=== PATIENT | female | born 1970 | race African-American/Black ===

== ENCOUNTER 2019-03-28 16:33 | Inpatient (IN) ==
[2019-03-28] MEDS ORDERED: ASPIRIN PO ONE (16:51)
[2019-03-28 17:46] LABS: BASO# 0.27 X1000 (0.0-0.2); EOS# 0.03 X1000 (0.0-0.7); EOS% 0.1 % (0.0-10.0); HEMATOCRIT 32.4 % (37.0-47.0); HEMOGLOBIN 11.6 g/dL (12.0-16.0); IMM GRAN# 2.16 X1000 (0.0-0.04); IMM GRAN% 8.2 % (0.0-0.5); LYMPH% 6.8 % (20.5-51.1); MCHC 35.8 g/dL (33-37); MCV 100.6 FL (81-99); MONO# 2.95 X1000 (0.11-0.59); MONO% 11.1 % (1.7-9.3); MPV 11.2 FL (7.4-10.4); NEUT# 19.25 X1000 (1.4-6.5); NEUT% 72.8 % (42.2-75.2); PLT 184 X1000 (130-400); RBC 3.22 XMIL (4.2-5.4); WBC 26.46 X1000 (4.8-10.8)
[2019-03-28 17:55] LABS: INR 1.19; PROTIME 15.7 Seconds (11.0-16.0)
[2019-03-28 17:56] LABS: PTT 25.5 Seconds (22.3-41.8)
--- NOTE | 2019-03-28 18:01 | Diag Imaging Result Doc PS360 ---
CHEST-2 VIEWS - 03/28/2019 INDICATION: tachycardia/dizzy COMPARISON: 12/02/2018 FINDINGS: The lungs are normally expanded and clear. Heart size and mediastinal contours are normal. No pneumothorax or pleural effusion. IMPRESSION: Negative exam. Electronically signed by Zack Winters 03/28/2019 5:58 PM
[2019-03-28] MEDS ORDERED: ROCEPHIN 1 GM in NS 50 ML IV ONE (18:11)
[2019-03-28] MEDS ORDERED: M.V.I.-12 10 ML, FOLIC ACID 1 MG, MAGNESIUM SULFATE 1 GM, THIAMINE 100 MG in NS 1,000 ML IV ONE (18:11)
[2019-03-28 18:28] LABS: BANDS 4 % (0-1); LYMPHS 7 % (21-51); MONO 11 % (1-9); SEGS 78 % (42-75)
--- NOTE | 2019-03-28 18:52 | PROVIDER DOCUMENTATION ---
This chart was entered by Yong Diaz Scribe, acting as scribe for Orville Moise MD. HPI-General Adult - General Source: patient, family - History of Present Illness -Gen Adult Nature of Presenting Problems: Pt is a 48 yof who presents to the ED with a CC of weakness. Pt states she has felt dizzy and weak for four days. Pt reports she has fell three times lately. Pt reports she had a chest cold three weeks ago, and states she hasn't felt well since. Pt's daughter states she fell down a flight of steps approximately one month ago. Pt daughter states she has had symptoms since her fall. Pt's daughter states the pt has been slurring her speech lately. Pt's daughter reports the pt has not been eating well lately, but she has increased amount of bowel movements. Pt's daughter states the pt has sores on her buttocks and states she has had blood in her stool recently. Pt's daughter states she thinks the pt is dehydrated and states she has been sleeping an excess amount lately. 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 Location of Pain/Injury: reports: generalized (Weakness) Quality of Pain: reports: other (Weakness) Severity: reports: mild Onset/Duration: reports: 4 days ago Timing: reports: still present Associated Symptoms: reports: sensory/motor loss, weakness, trouble walking, other (See HPI) Similar Symptoms Previously?: No Recently seen or treated by another doctor?: No <Orville Moise - Last Filed: 03/28/19 18:52> <Matt Johnson - Last Filed: 03/28/19 20:27> - General Chief Complaint: General Adult Stated Complaint: DIZZY / HURTS ALL OVER Time Seen by Provider: 03/28/19 17:01 Allergies/Adverse Reactions: Patient Allergies Allergy/AdvReac Type Severity Reaction Status Date / Time No Known Allergies Allergy Verified 08/27/13 02:38 Home Medications: Home Medication List Medication Instructions Recorded Confirmed Last Taken Type NK [No Home Medications] 03/28/19 03/28/19 Unknown History Review of Systems - Adult - REVIEW OF SYSTEMS - ADULT Constitutional: reports: see HPI Eyes: reports: no symptoms reported Ears, Nose, Mouth & Throat: reports: no symptoms reported Cardiovascular: reports: no symptoms reported Respiratory: reports: see HPI Gastrointestinal: reports: see HPI, rectal bleeding Genitourinary: reports: no symptoms reported Musculoskeletal: reports: see HPI, muscle weakness Integumentary: reports: no symptoms reported Neurological: reports: see HPI, ataxia, dizziness/vertigo, loss of balance, slurred speech Psychiatric: reports: no symptoms reported Endocrine: reports: no symptoms reported Hematologic/Lymphatic: reports: no symptoms reported Allergic/Immunologic: reports: no symptoms reported All Other Systems: Reviewed and Negative <Orville Moise - Last Filed: 03/28/19 18:52> Past History - Adult - PAST MEDICAL HISTORY-ADULT Review of Records: reports: Old Records Reviewed, Nursing Assessment Review, Medications Reviewed, Social history reviewed & non-contributory. Major Childhood Illnesses: reports: denies history Cardiovascular: reports: denies history Respiratory: reports: denies history Gastrointestinal: reports: other (doesn't eat well since her Jcak-en y surgery) Obstetrical/Gynecological: reports: denies history Genitourinary: reports: denies history Musculoskeletal: reports: denies history Neurological: reports: denies history Psychiatric: reports: anxiety Endocrine/Immune: reports: denies history Other Conditions: reports: denies history - PRIOR SURGERIES/PROCEDURES Surgical/Procedure History: reports: gastric bypass - IMMUNIZATION STATUS Childhood Immunizations: See Nurse Assessment Flu Vaccine: See Nurse Assessment - FAMILY HISTORY Family History: reviewed, not pertinent - SOCIAL HISTORY Smoking: cigarettes, greater than 1 pack/day Substance Use: alcohol, marijuana Alcohol Use Frequency: every day <Orville Moise - Last Filed: 03/28/19 18:52> Physical Exam-General - PHYSICAL EXAM-ADULT Initial Vital Signs Reviewed: Yes - CONSTITUTIONAL General Appearance: alert, mild distress - EYES Eyes: PERRL/EOMI, pink conjunctivae - NECK Neck: non-tender, full range of motion - RESPIRATORY Respiratory: chest non-tender, lungs clear, normal breath sounds, no pleuratic chest pain, no respiratory distress - CARDIOVASCULAR Cardiovascular: normal peripheral pulses, regular rate, rhythm, no edema, no gallop, no JVD, no murmur - GASTROINTESTINAL (ABDOMEN) Abdominal Exam: non tender, soft - MUSCULOSKELETAL Extremity: normal range of motion, non-tender - SKIN Integumentary: normal color, warm/dry - NEUROLOGIC Neurologic: relish maker II-XII nml as tested, grossly normal - PSYCHIATRIC Psych/Mental Status: normal mood/affect, normal thought content, normal thought process, oriented x 3 <Orville Moise - Last Filed: 03/28/19 18:52> Progress - PLAN OF CARE/RESULTS Progress/Plan/Lab Results: Vital Signs - 8 hr 03/28/19 16:36 Temperature 98 F Pulse Rate 118 H Respiratory Rate 18 Blood Pressure 116/66 O2 Sat by Pulse Oximetry 97 Orders Category Date Time Status Cardiac Monitoring DIRECTED Care 03/28/19 16:51 Active Nursing- Obtain EKG ONCE Care 03/28/19 16:48 Active Oxygen Therapy- ED Nursing DIRECTED Care 03/28/19 16:51 Active Saline Loc NOW Care 03/28/19 16:51 Active CHEST-2 VIEWS [RAD] Stat Exams 03/28/19 16:51 Ordered ALCOHOL BLOOD Stat Lab 03/28/19 17:11 Ordered AMYLASE [CHEM] Stat Lab 03/28/19 16:51 Ordered CBC WITH DIFF [HEME] Stat Lab 03/28/19 16:51 Ordered CBC WITH DIFF [HEME] Stat Lab 03/28/19 16:59 Ordered CBC WITH ELECTRONIC DIFF [HEME] Stat Lab 03/28/19 17:11 Ordered CK PROFILE [SP CHEM] Stat Lab 03/28/19 17:11 Ordered CMP [COMPREHENSIVE METABOLIC PANEL] [CHEM] Stat Lab 03/28/19 17:11 Ordered COMPREHENSIVE METABOLIC PANEL [CHEM] Stat Lab 03/28/19 17:11 Ordered LIPASE [CHEM] Stat Lab 03/28/19 17:11 Ordered PRO B-NATRIURETIC PEPTIDE Stat Lab 03/28/19 17:11 Ordered PROTIME WITH INR [COAG] Stat Lab 03/28/19 17:11 Ordered PTT [COAG] Stat Lab 03/28/19 17:11 Ordered TROPONIN T Stat Lab 03/28/19 17:[address] W/POSS RFLX CULT [URINALYSIS] Stat Lab 03/28/19 16:51 Uncollected Aspirin Med 03/28/19 16:51 Discontinued 325 mg PO NOW ONE CP/SOB/Palp >45 yrs of Age Stat Oth 03/28/19 16:51 Ordered EKG [EKG] Stat Ther 03/28/19 16:48 Ordered Result Diagrams: 03/28/19 17:16 - EKG 1 Time of EKG reading by physician:: 16:53 EKG Read and Signed by:: Orville Moise EKG Interpretation (*Must complete 3 of following elements*): Abnormal (Possible anterior infarct, age undetermined) Rate: 112 Rhythm: Sinus tachycardia [place]: normal QRS: normal TN Interval: normal ST Wave: normal - XRAY 1 XRAY: Bilateral XRAY Study: Chest Impression: See EMR Report (CHEST-2 VIEWS - 03/28/2019 INDICATION: tac hycardia/dizzy COMPARISON: 12/02/2018 FINDINGS: The lungs are normally expanded and clear. Heart size and mediastinal contours are normal. No pneumothorax or pleural effusion. IMPRESSION: Negative exam. Electronically signed by Zack Winters 03/28/2019 5:58 PM 03/28/191757 Interpreting Physician: Zack Winters MD Dictated Date/Time: 03/28/191757 cc: Orville Moise MD; None,PCP) - CONSULTS/PCP/HOSPITALIST Notification #1 *Consult/PCP/Hospitalist*: Dr Ma Time Discussed: 18:14 Consult Disposition: Will see in ED, Admit - CHANGE OF SHIFT REPORT (ED Provider) 1 Report Given and Care Transferred to:: Dr Johnson Time of Transfer: 18:52 Items Pending: Labs, CT/MRI Results <Orville Moise - Last Filed: 03/28/19 18:52> - PLAN OF CARE/RESULTS Progress/Plan/Lab Results: Vital Signs - 8 hr 03/28/19 16:36 Temperature 98 F Pulse Rate 118 H Respiratory Rate 18 Blood Pressure 116/66 O2 Sat by Pulse Oximetry 97 Laboratory Results - last 24 hr 03/28/19 03/28/19 03/28/19 17:10 17:10 17:10 WBC Cancelled RBC Cancelled Hgb Cancelled Hct Cancelled MCV Cancelled MCH Cancelled MCHC Cancelled RDW Std Deviation Cancelled Plt Count Cancelled MPV Cancelled Immature Gran % (Auto) Cancelled Neut % (Auto) Cancelled Lymph % (Auto) Cancelled Morton % (Auto) Cancelled Eos % (Auto) Cancelled Baso % (Auto) Cancelled Immature Gran # (Auto) Cancelled Neut # (Auto) Cancelled Lymph # (Auto) Cancelled Morton # (Auto) Cancelled Eos # (Auto) Cancelled Baso # (Auto) Cancelled Corrected WBC (Man) Cancelled Segmented Neutrophils Band Neutrophils Lymphocytes Monocytes PT INR PTT (Actin FS) Sodium Potassium Chloride Carbon Dioxide Anion Gap BUN Creatinine Estimated GFR/1.73 m2 BUN/Creatinine Ratio Glucose Calculated Osmolality Calcium Total Bilirubin AST ALT Alkaline Phosphatase Creatine Kinase Troponin T Lfi-D-Memzgohkuyk Pept Total Protein Albumin Globulin Albumin/Globulin Ratio Amylase 345 H Lipase Plasma Lactate Plasma/Serum Ethyl Alc 03/28/19 03/28/19 03/28/19 17:10 17:10 17:10 WBC RBC Hgb Hct MCV MCH MCHC RDW Std Deviation Plt Count MPV Immature Gran % (Auto) Neut % (Auto) Lymph % (Auto) Morton % (Auto) Eos % (Auto) Baso % (Auto) Immature Gran # (Auto) Neut # (Auto) Lymph # (Auto) Morton # (Auto) Eos # (Auto) Baso # (Auto) Corrected WBC (Man) Segmented Neutrophils Band Neutrophils Lymphocytes Monocytes PT 15.7 INR 1.19 PTT (Actin FS) 25.5 Sodium 132 L Potassium 2.8 L Chloride 94 L Carbon Dioxide 18 L Anion Gap 20 BUN 83 H Creatinine 3.3 H Estimated GFR/1.73 m2 15 BUN/Creatinine Ratio 25 Glucose 120 H Calculated Osmolality 291 Calcium 7.8 L Total Bilirubin 4.00 H AST 42 H ALT 31 Alkaline Phosphatase 117 H Creatine Kinase 60 Troponin T Txm-T-Majxnuqoeqr Pept 528 H Total Protein 5.9 L Albumin 2.6 L Globulin 3.0 Albumin/Globulin Ratio 1.0 Amylase Lipase 575 H Plasma Lactate Plasma/Serum Ethyl Alc 03/28/19 03/28/19 03/28/19 17:10 17:16 18:15 WBC 26.46 H RBC 3.22 L Hgb 11.6 L Hct 32.4 L MCV 100.6 H MCH 36.0 H MCHC 35.8 RDW Std Deviation 15.0 H Plt Count 184 MPV 11.2 H Immature Gran % (Auto) 8.2 H Neut % (Auto) 72.8 Lymph % (Auto) 6.8 L Morton % (Auto) 11.1 H Eos % (Auto) 0.1 Baso % (Auto) 1.0 H Immature Gran # (Auto) 2.16 H Neut # (Auto) 19.25 H Lymph # (Auto) 1.80 Morton # (Auto) 2.95 H Eos # (Auto) 0.03 Baso # (Auto) 0.27 H Corrected WBC (Man) Segmented Neutrophils 78 H Band Neutrophils 4 H Lymphocytes 7 L Monocytes 11 H PT INR PTT (Actin FS) Sodium Potassium Chloride Carbon Dioxide Anion Gap BUN Creatinine Estimated GFR/1.73 m2 BUN/Creatinine Ratio Glucose Calculated Osmolality Calcium Total Bilirubin AST ALT Alkaline Phosphatase Creatine Kinase Troponin T 0.029 Nbt-Q-Kriartbcoyw Pept Total Protein Albumin Globulin Albumin/Globulin Ratio Amylase Lipase Plasma Lactate 1.3 Plasma/Serum Ethyl Alc Orders Category Date Time Status Cardiac Monitoring DIRECTED Care 03/28/19 16:51 Active Cardiac Monitoring DIRECTED Care 03/28/19 19:20 Active Regan Cath Insertion ORDERED Care 03/28/19 19:18 Active Intake and Output-Strict ORDERED Care 03/28/19 19:18 Active Notify MD of + Sepsis Screen NOW Care 03/28/19 19:20 Active Notify MD/PA/FAST FOOD SALES ASSISTANT for exam NOW Care 03/28/19 19:18 Active Nursing- Obtain EKG ONCE Care 03/28/19 16:48 Active Oxygen Therapy- ED Nursing DIRECTED Care 03/28/19 16:51 Active Repeat Vital Signs .Blood Pressure Care 03/28/19 19:18 Active Repeat Vital Signs .Heart Rate Care 03/28/19 19:18 Active Repeat Vital Signs .Oxygen Saturation Care 03/28/19 19:18 Active Repeat Vital Signs .Respiratory Rate Care 03/28/19 19:18 Active Repeat Vital Signs .Temp Care 03/28/19 19:18 Active Saline Loc NOW Care 03/28/19 16:51 Active CHEST-2 VIEWS [RAD] Stat Exams 03/28/19 16:[address] ABDOMEN/PELVIS W/O CONTRAST [CT] Stat Exams 03/28/19 19:[address] HEAD W/O CONTRAST [CT] Stat Exams 03/28/19 18:12 Completed ALCOHOL BLOOD Stat Lab 03/28/19 17:10 Completed AMYLASE [CHEM] Stat Lab 03/28/19 17:10 Completed BLOOD CULTURE [BLDCUL] Stat Lab 03/28/19 18:11 Ordered CBC WITH DIFF [HEME] Stat Lab 03/28/19 17:16 Completed CK PROFILE [SP CHEM] Stat Lab 03/28/19 17:10 Completed CMP [COMPREHENSIVE METABOLIC PANEL] [CHEM] Stat Lab 03/28/19 17:10 Completed LACTATE, PLASMA [CHEM] Lab 03/28/19 19:30 Uncollected LACTATE, PLASMA [CHEM] Lab 03/28/19 22:30 Uncollected LACTATE, PLASMA [CHEM] Lab 03/29/19 01:30 Uncollected LACTATE, PLASMA [CHEM] Stat Lab 03/28/19 18:15 Completed LACTATE, PLASMA [CHEM] Timed Lab 03/28/19 19:18 Uncollected LIPASE [CHEM] Stat Lab 03/28/19 17:10 Completed PRO B-NATRIURETIC PEPTIDE Stat Lab 03/28/19 17:10 Completed PROTIME WITH INR [COAG] Stat Lab 03/28/19 17:10 Completed PTT [COAG] Stat Lab 03/28/19 17:10 Completed TROPONIN T Stat Lab 03/28/19 17:[address] W/POSS RFLX CULT [URINALYSIS] Stat Lab 03/28/19 16:51 Uncollected 0.9% Sodium Chloride Inj [Ns] 1,000 ml Med 03/28/19 19:18 Discontinued IV As Directed mls/hr 0.9% Sodium Chloride Inj [Ns] 500 ml Med 03/28/19 19:18 Discontinued IV 999 mls/hr Aspirin Med 03/28/19 16:51 Discontinued 325 mg PO NOW ONE CefTRIAXONE [Rocephin] 1 gm Med 03/28/19 18:11 Discontinued 0.9% Sodium Chloride Inj [Ns] 50 ml IV NOW Mvi [M.v.i.-12] 10 ml Med 03/28/19 18:11 Discontinued Folic Acid 1 mg Magnesium Sulfate 1 gm Thiamine 100 mg 0.9% Sodium Chloride Inj [Ns] 1,000 ml IV NOW Vancomycin 1 gm/Ns Med 03/28/19 19:21 Active 1 gm in 250 ml IV NOW CP/SOB/Palp >45 yrs of Age Stat Oth 03/28/19 16:51 Ordered Oxygen Device Stat Oth 03/28/19 19:20 Completed EKG [EKG] Stat Ther 03/28/19 16:48 Ordered Result Diagrams: 03/28/19 17:16 03/28/19 17:10 - CT/MRI 1 CT Study: Abdomen, Pelvis CT Results: fatty liver, NAD <Matt Johnson - Last Filed: 03/28/19 20:27> Departure - Departure Date of Disposition Decision: 03/28/19 Certified Medical Emergency: Emergent - Critical Care Note This patient required my direct & personal management of CC.: No <Orville Moise - Last Filed: 03/28/19 18:52> - Departure Time of Disposition Decision: 20:27 Certified Medical Emergency: Emergent <Matt Johnson - Last Filed: 03/28/19 20:27> - Departure DIAGNOSIS: LEAH (acute kidney injury), Hypokalemia Acute pancreatitis Qualifiers: Pancreatitis type: alcohol induced Acute pancreatitis complication: unspecified Qualified Code(s): K85.20 - Alcohol induced acute pancreatitis without necrosis or infection Leukocytosis Qualifiers: Leukocytosis type: bandemia Qualified Code(s): D72.825 - Bandemia Disposition: ADMITTED INPATIENT 09 Condition: Stable Additional Freetext Instructions: ED Follow Up Instructions: You have been treated by a care provider in the Emergency Department. These instructions are being provided to you so you can have an understanding of how to care for yourself upon discharge. Upon discharge from the Emergency Department, you are responsible for making arrangements for follow-up care by a physician of your choice. Take all prescribed medications as directed. Return to the Emergency Department immediately for any new or worsening symptoms. You may call the Physician Referral phone number at [phone] to obtain a list of Physicians who are taking new patients. Referrals and Follow-Ups: None,PCP [Primary Care Provider] - Attestation - Physician/ JACKY Attestation Patient care was provided by Advanced Practice Provider:: No The physician spent face to face time with patient:: Yes Advanced Practice Provider documentation review:: Supervising physician onsite and consulted in the evaluation and care of this patient. The physician did have a face to face encounter with the patient. <Orville Moise - Last Filed: 03/28/19 18:52> This chart was documented by the indicated scribe, (Yong Diaz Scribe) and accurately reflects the services I performed and decisions made by me, Orville Hinkle MD, as attested by the provider's signature.
[2019-03-28 19:03] LABS: ALBUMIN 2.6 g/dL (3.5-5.0); CALCIUM 7.8 mg/dL (8.8-10.2); CREATININE 3.3 mg/dL (0.5-0.9); POTASSIUM 2.8 mmol/L (3.5-5.1); TOTAL PROTEIN 5.9 g/dL (6.3-8.3)
[2019-03-28] MEDS ORDERED: NS 1,000 ML IV ONE ×2 (19:18→20:21)
[2019-03-28] MEDS ORDERED: NS 500 ML IV ONE (19:18)
[2019-03-28] MEDS ORDERED: VANCOMYCIN 1 GM/NS 1 GM/250 ML IVPB IV ONE (19:21)
--- NOTE | 2019-03-28 19:51 | Diag Imaging Result Doc PS360 ---
CT HEAD W/O CONTRAST - 03/28/2019 INDICATION: dizziness, slurred speech COMPARISON: 12/02/2018 FINDINGS: The ventricles and sulci are normal in size and contour. No intracranial mass or hemorrhage. The skull is intact. The sinuses mastoids and middle ears are clear. IMPRESSION: Negative exam. This exam was performed using automated exposure control, adjustment of mA or kV according to patient size, and/or use of iterative reconstruction technique Electronically signed by Zack Winters 03/28/2019 7:49 PM
--- NOTE | 2019-03-28 19:55 | Diag Imaging Result Doc PS360 ---
CT ABDOMEN/PELVIS W/O CONTRAST - 03/28/2019 INDICATION: abdominal pain COMPARISON: None FINDINGS: The lung bases are clear and the heart size is normal. There are gastric bypass changes without complication. There is advanced fatty change of the liver diffusely. No radiodense renal stones. No hydronephrosis or hydroureter. Other abdominal organs are normal. There is a small complex cystic mass of the right ovary containing internal fat density. This measures 3 x 2.3 cm. This is compatible with a dermoid cyst. No adenopathy. No free fluid. Urinary bladder, uterus, left ovary, and rectum are normal. There are moderate degenerative changes of the spine. No acute or suspicious bony lesion. IMPRESSION: 1. Small dermoid cyst of the right ovary. Follow-up on a nonemergent basis with SHIPPER/RECEIVER. 2. Fatty change of the liver. This exam was performed using automated exposure control, adjustment of mA or kV according to patient size, and/or use of iterative reconstruction technique Electronically signed by Zack Winters 03/28/2019 7:52 PM
[2019-03-28] MEDS ORDERED: ZOFRAN IV PRN (20:21)
[2019-03-28] MEDS ORDERED: KLOR-CON PO ONE (20:27)
[2019-03-28 21:18] LABS: BILIRUBIN URINE NEGATIVE (NEGATIVE); BLOOD URINE 4+ (NEGATIVE); GLUCOSE URINE NEGATIVE (NEGATIVE); KETONE URINE NEGATIVE (NEGATIVE); NITRITE URINE POSITIVE (NEGATIVE); PROTEIN URINE 1+(30 mg/dL) mg/dL (NEGATIVE); SP GRAVITY URINE 1.005; UROBILINOGEN URINE NORMAL
[2019-03-28 21:19] LABS: CLARITY SL. CLOUDY (CLEAR); COLOR YELLOW; LEUKOCYTES URINE 2+ (NEGATIVE); URINE WBC TNTC /HPF (<10)
[2019-03-28 21:21] LABS: URINE BACTERIA 4+ /HFP; URINE EPITHELIAL CELLS <10 /HPF (<10); URINE RBC 20-40 /HPF (<10)
[2019-03-28 21:22] LABS: URINE CAST NONE SEEN /LPF; URINE CRYSTAL NONE SEEN /HPF; URINE SMALL ROUND CELLS RENAL PRESENT; URINE SOURCE CATH; URINE YEAST NONE SEEN /HPF
[2019-03-28] MEDS ORDERED: PNEUMOVAX 23 IM ONE (23:32)
[2019-03-28] MEDS ORDERED: CALMOSEPTINE OINTMENT TOP PRN (23:33)
[2019-03-29] MEDS: ZOSYN 2.25 GM in NS 50 ML IV SCH ×5 (00:49→23:09)
--- NOTE | 2019-03-29 05:34 | EKG Report ---
Test Performed on : 03/28/2019 4:53:11 PM Test Reason : tachy Blood Pressure : / mmHG Vent. Rate : 112 BPM Atrial Rate : 112 BPM P-R Int : 128 ms QRS Dur : 076 ms QT Int : 340 ms P-R-T Axes : 010 004 011 degrees QTc Int : 464 ms Sinus tachycardia. Possible Anterior infarct , age undetermined Abnormal ECG No previous ECGs available Unconfirmed Result
[2019-03-29] MEDS ORDERED: SALINE LOCK IV FLUID XX ONE (07:49)
[2019-03-29] MEDS ORDERED: ROBAXIN PO PRN (07:49)
[2019-03-29] MEDS ORDERED: BENTYL PO PRN (07:49)
[2019-03-29] MEDS ORDERED: ATARAX PO PRN (07:49)
[2019-03-29] MEDS: LIBRIUM PO SCH ×3 (08:32→20:10)
--- NOTE | 2019-03-29 08:57 | EKG Report ---
Test Performed on : 03/28/2019 8:28:36 PM Test Reason : CP Blood Pressure : / mmHG Vent. Rate : 092 BPM Atrial Rate : 092 BPM P-R Int : 132 ms QRS Dur : 082 ms QT Int : 404 ms P-R-T Axes : 057 005 015 degrees QTc Int : 499 ms Normal sinus rhythm. Possible Left atrial enlargement Prolonged QT Abnormal ECG When compared with ECG of 28-MAR-2019 16:53, (Unconfirmed) No significant change was found Confirmed by Jessica Burgess MD ([id number]) on 04/01/2019 8:32:12 AM
--- NOTE | 2019-03-29 09:08 | HISTORY AND PHYSICAL ---
CHIEF COMPLAINT: Dizziness. HISTORY OF PRESENT ILLNESS: The patient is a 48-year-old female who was seen in the emergency department complaining of generalized weakness and dizziness. She states that she has fallen 3 times. She is very sleepy and weak. She has had a chest cold for the past couple of weeks. She did recently fall down some steps some 3 weeks ago, and had a cranial fracture. This was most likely alcohol related. The daughter notes that Ms. Dowling has been having slurred speech, and stumbling lately. She has not been eating well. She has had increased diarrhea. Denies any knowledge of blood in her stool until possibly yesterday. She has been drinking more lately, and has been sleeping more lately. ALLERGIES: No known drug allergies. MEDICATIONS: She is on no current prescription medications. REVIEW OF SYSTEMS: As noted above. The patient denies any focal weakness. States she has been generally weak. Positive diarrhea. Denies any dysuria or frequency. Denies fevers or chills. She has had a cough, and nonproductive. Positive headaches but no blurred vision. No focalized numbness or tingling. Denies any chest pain or palpitations. Denies any skin rashes. PAST MEDICAL HISTORY: Chronic alcoholism. She has had a Jack-en-Y surgery in the past. She has had gastric bypass. FAMILY HISTORY: Noncontributory. SOCIAL HISTORY: Patient drinks heavily every day. States she stopped drinking approximately 3 days ago. She smokes at least a pack a day. Smokes marijuana most days. PHYSICAL EXAMINATION: VITAL SIGNS: Reviewed. Temperature 98 degrees, pulse 90, respiratory 18, BP 116/66, and saturation 97% on room air. GENERAL: Patient is awake and alert. She is in no respiratory distress at home, sitting in the bed. No visible tremors or sweating. HEENT: Normocephalic. NECK: Supple. CARDIOVASCULAR: Tachycardia. No murmurs. CHEST: Clear and nonlabored. No crackles. No wheezing. ABDOMEN: Slightly distended and diffusely tender. EXTREMITIES: Moves all extremities. NEUROLOGIC: No focal changes. ASSESSMENT: 1. Pancreatitis with elevated amylase. 2. Leukocytosis. 3. Chronic tobacco abuse. 4. Chronic drug use of marijuana. 5. Chronic alcohol use and abuse. 6. Frequent falls, most likely secondary to alcoholism. 7. Diarrhea. CT negative. Again, most likely secondary to chronic alcoholism. PLAN: We will continue to follow. Place patient on antibiotics and IV fluids, banana bag. We will monitor for alcohol withdrawal. Further orders as needed. cc: Monty Ma MD
[2019-03-29 09:28] LABS: HEMATOCRIT 31.3 % (37.0-47.0); HEMOGLOBIN 10.8 g/dL (12.0-16.0); MCH 35.3 PG (27-31); MCHC 34.5 g/dL (33-37); MCV 102.3 FL (81-99); MPV 10.2 FL (7.4-10.4); RBC 3.06 XMIL (4.2-5.4); RDW 15.2 % (11.5-14.5); WBC 28.34 X1000 (4.8-10.8)
[2019-03-29 09:39] LABS: ALBUMIN 2.1 g/dL (3.5-5.0); CALCIUM 7.7 mg/dL (8.8-10.2); CREATININE 2.9 mg/dL (0.5-0.9); MAGNESIUM 2.5 mg/dL (1.5-2.7); TOTAL BILIRUBIN 2.9 mg/dL (0.20-1.00); TOTAL PROTEIN 6.1 g/dL (6.3-8.3)
[2019-03-29] MEDS ORDERED: NS 1,000 ML IV SCH (13:45)
[2019-03-29] MEDS ORDERED: M.V.I.-12 10 ML, FOLIC ACID 1 MG, MAGNESIUM SULFATE 1 GM, THIAMINE 100 MG in NS 1,000 ML IV ONE (18:00)
--- NOTE | 2019-03-29 19:10 | PROGRESS NOTE ---
DATE: 03/29/2019 SUBJECTIVE: Patient is still weak and fatigued, though she is able to continue to ambulate with assistance. Denies any fevers. PHYSICAL EXAMINATION: General: She is awake, alert. She is in no distress. Vital Signs: Reviewed and stable. HEENT: Normocephalic. Neck: Supple. Cardiovascular: Regular rate. Chest: Clear. Abdomen: Soft, nondistended. Extremities: Moves all extremities. Trace edema. ASSESSMENT: 1. Leukocytosis. White count is actually still elevated at 28. 2. Hypokalemia. 3. Acute on chronic renal disease. 4. Hyponatremia. 5. Chronic alcoholism, causing frequent falls with previous injuries. PLAN: We will continue patient in hospital. Continue Zosyn, but it does appear that she may have a urinary tract infection. Further orders as needed. We will continue to monitor for withdrawal. cc: Monty Ma MD
[2019-03-30] MEDS: LIBRIUM PO SCH ×4 (01:33→23:12)
[2019-03-30] MEDS: ZOSYN 2.25 GM in NS 50 ML IV SCH ×3 (05:20→20:48)
[2019-03-30] MEDS ORDERED: NS 1,000 ML IV SCH ×3 (09:40→09:45)
[2019-03-30 10:31] LABS: BASO# 0.15 X1000 (0.0-0.2); BASO% 0.6 % (0.0-0.8); EOS# 0.05 X1000 (0.0-0.7); EOS% 0.2 % (0.0-10.0); HEMATOCRIT 28.4 % (37.0-47.0); HEMOGLOBIN 9.4 g/dL (12.0-16.0); IMM GRAN# 2.79 X1000 (0.0-0.04); IMM GRAN% 11.2 % (0.0-0.5); LYMPH# 1.26 X1000 (1.2-3.4); LYMPH% 5.1 % (20.5-51.1); MCH 35.2 PG (27-31); MCHC 33.1 g/dL (33-37); MCV 106.4 FL (81-99); MONO# 1.69 X1000 (0.11-0.59); MONO% 6.8 % (1.7-9.3); MPV 10.4 FL (7.4-10.4); NEUT# 19.01 X1000 (1.4-6.5); NEUT% 76.1 % (42.2-75.2); PLT 209 X1000 (130-400); RBC 2.67 XMIL (4.2-5.4); RDW 15.8 % (11.5-14.5); WBC 24.95 X1000 (4.8-10.8)
[2019-03-30 10:52] LABS: CALCIUM 7.3 mg/dL (8.8-10.2); CREATININE 2.7 mg/dL (0.5-0.9); POTASSIUM 2.9 mmol/L (3.5-5.1); TOTAL BILIRUBIN 2.4 mg/dL (0.20-1.00); TOTAL PROTEIN 5.8 g/dL (6.3-8.3)
[2019-03-30] MEDS: NS + KCL 20 MEQ 1,000 ML IV SCH ×2 (11:31→12:40)
--- NOTE | 2019-03-30 11:35 | PROGRESS NOTE ---
DATE: 03/30/2019 SUBJECTIVE: Ms. Dowling is still weak and tired. She continues with abdominal pain and nausea. She has had no vomiting. She has been eating ice chips in small amounts and tolerating them. OBJECTIVE: Vital Signs: Blood pressure is 103/68 with a heart rate of 100, respirations 20, temperature is 97.6 degrees with room air saturation 100. Cardiovascular: Regular rate and rhythm. S1 and S2 appreciated. She does have some trace lower extremity edema pretibial. Calves are nontender bilateral with peripheral pulses palpable x4 extremities. Pulmonary: Breath sounds are clear. No increased work of breathing noted. Chest rises and falls symmetric with respiration. Gastrointestinal: Abdomen is soft with generalized tenderness. She is nondistended with bowel sounds in all 4 quadrants. Genitourinary: Urine is clear yellow, draining to Regan, patent. LABS: WBC is 24.9 with hemoglobin 9.4, hematocrit 28.4, platelets of 209. CMP and lipase are pending. ASSESSMENT AND PLAN: 1. Leukocytosis. 2. Hypokalemia. Labs are pending. 3. Pancreatitis. The patient will continue on nothing by mouth. We will continue with intravenous hydration and antibiotic coverage of Zosyn. 4. Chronic drug use of marijuana. Aware. 5. Chronic alcohol use and abuse. We are monitoring for signs of withdrawal, and will continue with her Librium. 6. Diarrhea. This is resolved. 7. Anemia. This is most likely secondary to alcoholism. We will check a stool for occult blood and anemia workup. Plan discussed with Dr. Jaimes. Further treatments pending hospital course. Dictated by KYLE Lees for Ninfa Jaimes MD cc: KYLE Lees MD
[2019-03-30 11:57] LABS: ANISOCYTOSIS 2+; LYMPHS 9 % (21-51); MONO 16 % (1-9); SEGS 75 % (42-75)
--- NOTE | 2019-03-30 12:25 | PROGRESS NOTE ---
DATE: 03/30/2019 ADDENDUM: The patient was seen by me [id number] and I fully agree with the assessment and plan of nurse practitioner, Lora Oh. The patient has been diagnosed as having acute pancreatitis and has leukocytosis along with hypokalemia. We will give her IV fluids and replenish her electrolytes along with giving her broad-spectrum antibiotics. Will follow the hospital course and treat her appropriately. cc: Ninfa Jaimes MD
[2019-03-30] MEDS ORDERED: M.V.I.-12 10 ML, FOLIC ACID 1 MG, MAGNESIUM SULFATE 1 GM, THIAMINE 100 MG in NS 1,000 ML IV ONE (13:00)
[2019-03-30] MEDS: NS 1,000 ML IV SCH (19:17)
[2019-03-31] MEDS ORDERED: NICODERM PATCH TD ONE (01:42)
[2019-03-31] MEDS: ZOSYN 2.25 GM in NS 50 ML IV SCH ×4 (02:13→21:54)
[2019-03-31 06:55] LABS: BASO% 0.3 % (0.0-0.8); HEMATOCRIT 27.9 % (37.0-47.0); IMM GRAN% 11.4 % (0.0-0.5); LYMPH% 4.3 % (20.5-51.1); MCH 34.9 PG (27-31); MCHC 32.3 g/dL (33-37); MCV 108.1 FL (81-99); MONO% 5.7 % (1.7-9.3); NEUT% 78.3 % (42.2-75.2); PLT 203 X1000 (130-400); RBC 2.58 XMIL (4.2-5.4); RDW 15.8 % (11.5-14.5); WBC 24.22 X1000 (4.8-10.8)
[2019-03-31 06:56] LABS: BASO# 0.07 X1000 (0.0-0.2); EOS# 0.01 X1000 (0.0-0.7); IMM GRAN# 2.75 X1000 (0.0-0.04); LYMPH# 1.05 X1000 (1.2-3.4); MONO# 1.38 X1000 (0.11-0.59); NEUT# 18.96 X1000 (1.4-6.5)
[2019-03-31 07:06] LABS: BANDS 4 % (0-1); LYMPHS 10 % (21-51); MONO 6 % (1-9); SEGS 80 % (42-75)
[2019-03-31 07:24] LABS: CALCIUM 7.3 mg/dL (8.8-10.2); CREATININE 2.5 mg/dL (0.5-0.9); POTASSIUM 3.1 mmol/L (3.5-5.1); TOTAL BILIRUBIN 2.2 mg/dL (0.20-1.00)
[2019-03-31 07:27] LABS: IRON SATURATION 34 %; TIBC 128 ug/dL; TOTAL IRON 44 ug/dL (49-151); UNBOUND IRON 84 ug/dL (112-346)
[2019-03-31] MEDS: NS 1,000 ML IV SCH (09:35)
[2019-03-31] MEDS: LIBRIUM PO SCH ×3 (09:35→23:15)
[2019-03-31] MEDS: POTASSIUM CHLORIDE 20 MEQ/SWI 20 MEQ/100 ML IVPB IV SCH ×2 (11:09→17:13)
--- NOTE | 2019-03-31 12:48 | PROGRESS NOTE ---
DATE: 03/31/2019 SUBJECTIVE: The patient denies having any acute complaints, except for being hungry and epigastric mild discomfort. OBJECTIVE: Vital Signs: Temperature 99.7 degrees, pulse 96 per minute, respiratory rate 12 per minute, blood pressure 109/50, pulse oximetry 100% on room air. General: The patient is alert and oriented x3. She does not appear to be in any acute distress at this time. Cardiovascular: First and second heart sounds are audible without any murmurs or gallops. Respiratory: Bilateral lung air entry is moderately decreased, but there are no rales or rhonchi present on auscultation. Gastrointestinal: Abdomen is nondistended. It is soft and slightly tender on deep palpation in the epigastric area. Normal bowel sounds are present. DIAGNOSTIC DATA: CBC shows WBC count of 24.22, hemoglobin 9.0, hematocrit 27.9, and platelet count of 203,000. MCV is 108.1, and there are 78.3% neutrophils and 11.4% granulocytes that are immature. Comprehensive metabolic panel showed sodium levels of 137, potassium levels of 3.1, BUN 48, and creatinine 2.5. Calcium levels were found to be slightly low at 7.3, and amylase levels were found to be elevated at 424, and lipase 488. IMPRESSION: 1. Acute pancreatitis with leukocytosis. 2. Hypokalemia. 3. Acute kidney injury that is getting better. PLAN: Will continue her on broad-spectrum antibiotics, Zosyn 2.25 grams IV every 6 hours, along with IV fluids. We will continue giving her potassium chloride for hypokalemia as appropriate. Supportive care will be provided, and we will give further recommendations as per hospital course. cc: Ninfa Jaimes MD
[2019-03-31 15:11] LABS: FERRITIN 1625 ng/mL (13-150)
[2019-03-31] MEDS: M.V.I.-12 10 ML, FOLIC ACID 1 MG, MAGNESIUM SULFATE 1 GM, THIAMINE 100 MG in NS 1,000 ML IV SCH (17:14)
[2019-04-01] MEDS: ZOSYN 2.25 GM in NS 50 ML IV SCH ×4 (02:32→21:00)
[2019-04-01] MEDS: NS 1,000 ML IV SCH ×2 (02:37→15:20)
[2019-04-01 06:31] LABS: BASO# 0.05 X1000 (0.0-0.2); BASO% 0.2 % (0.0-0.8); EOS# 0.01 X1000 (0.0-0.7); HEMATOCRIT 25.7 % (37.0-47.0); IMM GRAN# 2.06 X1000 (0.0-0.04); IMM GRAN% 10.2 % (0.0-0.5); LYMPH% 4.9 % (20.5-51.1); MCH 34.6 PG (27-31); MCHC 31.1 g/dL (33-37); MCV 111.3 FL (81-99); MONO# 1.28 X1000 (0.11-0.59); MONO% 6.3 % (1.7-9.3); MPV 9.9 FL (7.4-10.4); NEUT# 15.81 X1000 (1.4-6.5); NEUT% 78.4 % (42.2-75.2); PLT 193 X1000 (130-400); RBC 2.31 XMIL (4.2-5.4); RDW 16.3 % (11.5-14.5); WBC 20.21 X1000 (4.8-10.8)
[2019-04-01 06:56] LABS: ALBUMIN 1.9 g/dL (3.5-5.0); CALCIUM 7.7 mg/dL (8.8-10.2); CREATININE 2.3 mg/dL (0.5-0.9); POTASSIUM 3.6 mmol/L (3.5-5.1); TOTAL BILIRUBIN 1.7 mg/dL (0.20-1.00); TOTAL PROTEIN 5.8 g/dL (6.3-8.3)
[2019-04-01] MEDS ORDERED: NS 1,000 ML IV SCH (07:08)
[2019-04-01] MEDS ORDERED: CLINIMIX E 4.25%-5% SOLUTION 1,000 ML IV SCH (07:15)
[2019-04-01 08:38] LABS: ANISOCYTOSIS 1+; BANDS 1 % (0-1); LYMPHS 4 % (21-51); MONO 10 % (1-9); SEGS 85 % (42-75)
[2019-04-01] MEDS ORDERED: LIBRIUM PO SCH (09:00)
[2019-04-01] MEDS: M.V.I.-12 10 ML, FOLIC ACID 1 MG, MAGNESIUM SULFATE 1 GM, THIAMINE 100 MG in NS 1,000 ML IV SCH (09:22)
[2019-04-01] MEDS ORDERED: BENTYL PO PRN (13:56)
[2019-04-01] MEDS ORDERED: CALMOSEPTINE OINTMENT TOP PRN (13:56)
[2019-04-01] MEDS ORDERED: ATARAX PO PRN (13:56)
[2019-04-01] MEDS ORDERED: ROBAXIN PO PRN (14:00)
[2019-04-01] MEDS: CLINIMIX E 4.25%-5% SOLUTION 1,000 ML IV SCH (15:20)
[2019-04-01] MEDS ORDERED: MORPHINE IV PRN (16:54)
--- NOTE | 2019-04-01 17:06 | Diag Imaging Result Doc PS360 ---
EXAM: CHEST-PORTABLE 04/01/2019 HISTORY: sob TECHNIQUE: AP portable at 1658 COMMENT: The inspiration is suboptimal. There is some questionable atelectasis in the left costophrenic angle region. Otherwise are has been no significant change since 03/28/2019 considering differences in inspiration and projection. IMPRESSION: Minimal left lower lobe atelectasis. Electronically signed by Dominic Reyes 04/01/2019 5:04 PM
--- NOTE | 2019-04-01 17:33 | PROGRESS NOTE ---
DATE: 04/01/2019 SUBJECTIVE: This morning Ms. Dowling was transferred from [place] to [facility] for higher level of care. Ms. Dowling was admitted to [place] on 03/28/2019 mainly because of feeling dizziness, weakness and excessive drinking. Upon presenting to [place], she was evaluated and was found to be in acute pancreatitis, alcohol abuse, frequent falls secondary to alcoholism. Apparently during the hospital course, she has not shown any remarkable improvement so she was transferred for other subspecialty evaluation. Today, Ms. Dowling refers to still be hurting in her abdomen and some cramps in her legs. No vomiting. OBJECTIVE: General: Ms. Dowling is a 48-year-old female. She is in bed. No distress. HEENT: Mucosa is pink and moist. Anicteric. Acyanotic. Neck: Supple. Chest: Air entry is bilaterally reduced. There are some expiratory rhonchi diffusely and some mild crackles in the posterior lung santa. Cardiovascular: Regular rate and rhythm. Abdomen: Soft, is tender in all abdominal wall. Mild guarding in the mid epigastrium but no rebound tenderness. Bowel sounds are present. Extremities: No pedal edema. Central nervous system: Patient is slightly drowsy but easily arousable and will engage in a rational conversation. She does have residual tremors in her hands. LABORATORY DATA: From early this morning has been reviewed. Patient has a leukocytosis, microcytic anemia with normal platelet count. Chemistry is also reviewed. Patient has mildly elevated gap acidosis. For the most part, the acidosis is probably driven by a non-gap. Amylase and lipase are elevated. ASSESSMENT: 1. Alcohol-induced pancreatitis. The patient continues to be hurting, but she seems to be tolerating some p.o. medications, so we will see if she will tolerate clear liquids this morning. GI has also been consulted. She is still also on Clinimix and lipid infusion. 2. Leukocytosis. This is presumably reactive and secondary to the ongoing inflammation from the acute pancreatitis; however, possible lung infection is a high possibility so she is being covered with antimicrobial therapy. We are going to get a chest x-ray today and go from there. ID has been consulted as well. 3. Acute kidney injury. It appears that Ms. Dowling was hypotensive at some point during the hospital course. So it is very possible she might have acute tubular necrosis going on. She seems to be making adequate urine output. We will get a urinalysis and also get Nephrology to evaluate her. The good thing is that her creatinine seems to be getting down. 4. History of alcohol abuse with tremors concerning for possible withdrawal. The patient has been on Librium. We will add p.r.n. Ativan for alcohol withdrawal. 5. Macrocytosis, most likely due to the direct toxic effect of alcohol abuse. B12 and folate are all within normal range. They are actually, being an acute phase reactant. cc: Yovani Chung MD MTDD
--- NOTE | 2019-04-01 18:01 | INFECTIOUS DISEASE CONSULT REP ---
DATE: 04/01/2019 CONCLUSION: Ms. Dowling has alcohol-induced pancreatitis with low-grade fever and leukocytosis. There may also be a urinary tract infection as seen on the urinalysis although the culture did not grow any organisms. RECOMMENDATIONS: The leukocytosis has started to improve on the present dosage of Zosyn, which is renally dosed due to her acute kidney injury. We agree with continuing the Zosyn as ordered and we will continue to follow the patient's progress. These plans have been discussed with and recommended by Dr. Kearney. LABORATORY AND X-RAY: Today, her white count is 20.21, hemoglobin 8, platelet count 193,000. Creatinine is 2.3, GFR 28. Total bilirubin 1.7, AST 18, ALT 13, alkaline phosphatase 80, amylase 418, lipase 519. Her previous urinalysis showed slightly cloudy urine with 2+ WBCs and 4+ urine bacteria. However the urine culture showed no growth and no growth on the blood cultures after 48 hours. Her abdomen and pelvis CT showed fatty liver with a right ovarian cyst. EKG showed sinus tachycardia and chest x-ray was negative. PAST MEDICAL HISTORY/REVIEW OF SYSTEMS: Constitutional: The patient denies any fever at home. She has had multiple falls which she relates to drinking large amounts of beer. She has had some dizziness and generalized weakness. HEENT: She states she currently has double- vision and has some problems with her hearing. Endocrine: She denies any diabetes or thyroid problems. Cardiovascular: She denies any chest pain or palpitations. Respiratory: She does have shortness of breath at rest upon occasion as well as a cough with dark yellow sputum. Genitourinary: She has occasional burning on urination. No flank pain. Gastrointestinal: She has had bouts of nausea and diarrhea but no blood in her stool. Musculoskeletal: She has no arthritis however her right lower extremity she states, is weaker than her left due to a previous fall. She has had a cranial fracture in the past month and a half with stitches to the scalp, which have healed. Psychiatric: She denies any diagnoses but the patient states she think she is bipolar with depression. Hematology/Oncology: She has required iron supplementation in the past with iron deficiency anemia. No history of blood transfusions or cancer. PAYROLL AND BENEFITS ASSISTANT: 2, para 2, AB 0. PAST MEDICAL HISTORY: Includes obesity, alcoholism, tobacco abuse, illicit drug use, multiple falls, and iron deficiency anemia. PAST SURGICAL HISTORY: Positive for gastric bypass. FAMILY HISTORY: Mom and dad both have congestive heart failure. She had a brother who of liver cancer. SOCIAL HISTORY: She lives alone and drinks 10+ beers a day. She also smokes 1 pack per day. She denies any illicit drug use. However, there is documentation of marijuana smoking. She has no pets. She has family in the room with her which includes her niece. ALLERGIES: She states she has no allergies to food or medicine. MEDICATIONS: Denies use of any odix-can-odmjigr or prescription medications at home. INFECTIOUS DISEASE: She does have a history of urinary tract infection and pneumonia as a child. PHYSICAL EXAMINATION: Vital Signs: Temperature is 99.5 degrees, pulse rate 109, respiratory rate 20, blood pressure 138/50, O2 saturation is 100% on room air. General: This is a chronically ill- appearing, middle-aged female. She is sitting up in bed, drowsy and lethargic but able to answer questions slowly and appropriately. HEENT: Atraumatic, normocephalic. Oral mucous membranes are pink and moist. Conjunctivae are pale. Sclerae are icteric. Neck: Supple. Trachea is midline. Respiratory: Lung sounds are clear to auscultation bilaterally in the mid and bases with some mild rhonchi noted to the upper lobes. No work of breathing is noted. Cardiovascular: Heart rate and rhythm are regular and fast, sinus tachycardia on the monitor. Abdomen: Soft, round, and tender to palpation, particularly in the epigastric region. Neurologic: She is drowsy and lethargic but arousable and appropriate. She complains of generalized weakness with the right lower extremity slightly weaker than the left due to a previous fall. Thank you for allowing us to see Ms. Dowling. Dictated by KYLE Lamb for Srikanth Kearney MD cc: Srikanth Kearney MD [facility] [place] DIVISIONDavid
--- NOTE | 2019-04-01 19:21 | PROGRESS NOTE ---
DATE: 04/01/2019 SUBJECTIVE: Patient appears to be a little more sedated this morning that she has been in the past. She still complains of headaches, abdominal pain, nausea, and leg pain. Interestingly, she states that she cannot move her legs. However, she also states that she can ambulate to the chair. I did discuss with her that it would be unusual for someone who cannot move her legs to be able to stand and get to the chair or to the restroom. PHYSICAL EXAMINATION: Vital signs: Temperature 98, pulse 102, respiratory 18, BP 121/75. General: Patient is easily awakened but she quickly falls back asleep. HEENT: Normocephalic. Neck: Supple. Cardiovascular: Regular rate. Chest: Clear. Abdomen: Soft diffusely, but mildly tender. Extremities: Moves all extremities. ASSESSMENT: 1. Metabolic acidosis. 2. Chronic renal failure. 3. Leukocytosis. 4. Anemia of chronic disease. 5. Pancreatitis. 6. Chronic alcoholism. 7. Hypokalemia, improved. PLAN: We will continue the patient in the hospital; although, we are going to transfer her to [facility] for Gastroenterology as well as Infectious Disease assistance. We will continue to attempt to wean her Librium due to alcohol withdrawal and see if this will help her wake up any better. She has not really eaten or drank anything in 4 days. She does have a metabolic acidosis. We are going to add Clinimix as her amylase, lipase are still elevated. We are not going to be able to feed her today. cc: Monty Ma MD
[2019-04-01 20:07] LABS: UR CREAT RANDOM 33.4 mg/dL (11-20)
[2019-04-01] MEDS: LIBRIUM PO SCH (21:00)
[2019-04-01 21:33] LABS: ACETAMINOPHEN < 1.2 ug/mL (10-30); SALICYLATES < 3.00 mg/dL (3-10)
[2019-04-01 21:38] LABS: ACETONE SERUM NEGATIVE (NEGATIVE)
[2019-04-02] MEDS: ZOSYN 2.25 GM in NS 50 ML IV SCH ×3 (02:42→13:55)
[2019-04-02] MEDS: ATIVAN IV PRN ×2 (02:45→20:07)
[2019-04-02] MEDS: CLINIMIX E 4.25%-5% SOLUTION 1,000 ML IV SCH ×4 (04:57→23:07)
[2019-04-02 06:33] LABS: BASO# 0.03 X1000 (0.0-0.2); BASO% 0.2 % (0.0-0.8); HEMATOCRIT 23.2 % (37.0-47.0); HEMOGLOBIN 7.5 g/dL (12.0-16.0); IMM GRAN% 5.7 % (0.0-0.5); LYMPH# 1.08 X1000 (1.2-3.4); LYMPH% 6.9 % (20.5-51.1); MCH 35.2 PG (27-31); MCHC 32.3 g/dL (33-37); MCV 108.9 FL (81-99); MONO# 1.02 X1000 (0.11-0.59); MONO% 6.5 % (1.7-9.3); MPV 9.8 FL (7.4-10.4); NEUT# 12.63 X1000 (1.4-6.5); NEUT% 80.7 % (42.2-75.2); PLT 167 X1000 (130-400); RBC 2.13 XMIL (4.2-5.4); RDW 15.8 % (11.5-14.5); WBC 15.66 X1000 (4.8-10.8)
[2019-04-02 07:05] LABS: ALB/GLOB RATIO 0.5; ALBUMIN 1.9 g/dL (3.5-5.0); CALCIUM 8.3 mg/dL (8.8-10.2); CREATININE 1.8 mg/dL (0.5-0.9); POTASSIUM 3.4 mmol/L (3.5-5.1); TOTAL BILIRUBIN 1.54 mg/dL (0.20-1.00); TOTAL PROTEIN 5.6 g/dL (6.3-8.3)
[2019-04-02 07:10] LABS: C REACTIVE PROT QUANT 107.76 mg/L (0.00-5.00); CALCIUM 8.1 mg/dL (8.8-10.2); CREATININE 1.7 mg/dL (0.5-0.9); PHOSPHORUS 3.3 mg/dL (2.7-4.5); POTASSIUM 3.5 mmol/L (3.5-5.1)
--- NOTE | 2019-04-02 07:18 | Diag Imaging Result Doc PS360 ---
EXAM: CHEST-PORTABLE 04/02/2019 HISTORY: dyspnea TECHNIQUE: AP portable at 0611 COMMENT: The inspiration is somewhat suboptimal. There is ill-defined opacity silhouetting the lateral left hemidiaphragm. This was probably also present on the previous study. IMPRESSION: Minimal left lower lobe atelectasis. Electronically signed by Dominic Reyes 04/02/2019 7:16 AM
[2019-04-02] MEDS: M.V.I.-12 10 ML, FOLIC ACID 1 MG, MAGNESIUM SULFATE 1 GM, THIAMINE 100 MG in NS 1,000 ML IV SCH (08:25)
[2019-04-02] MEDS: LIBRIUM PO SCH (08:27)
[2019-04-02] MEDS: NS 1,000 ML IV SCH ×3 (10:21→23:08)
--- NOTE | 2019-04-02 13:28 | GASTROENTEROLOGY CONSULTATION ---
DATE: 04/02/2019 REASON FOR CONSULTATION: Pancreatitis. HISTORY OF PRESENT ILLNESS: This is a 48-year-old female, who was admitted to the hospital on 03/28/[address] [facility]. She was transferred to [facility] for further evaluation and management on 04/01/2019. The patient is drowsy. She does arouse and is able to answer some of my questions, but is not fully able to assist with the review of systems. Most of the information is obtained from the chart. Apparently over the last couple weeks she has had a chest cold. She had been complaining of generalized weakness and dizziness, and had fallen multiple times. She had actually fallen in November and had a left subdural hematoma and a large left scalp hematoma with a nondisplaced frontal fracture. I believe her daughter had brought her into the emergency room for evaluation. The patient has had some slurred speech, stumbling and falling lately. Also reported to have diarrhea and had an episode of blood in the stool. She does have a history of alcohol abuse, and from records had been drinking more lately and had been sleeping a lot. PAST MEDICAL HISTORY: Chronic alcoholism. PAST SURGICAL HISTORY: History of gastric bypass/Jack-En-Y. ALLERGIES: No known drug allergies. HOME MEDICATIONS: None reported. SOCIAL HISTORY: The patient drinks heavily on a daily basis. Smokes cigarettes a pack a day and also smokes marijuana most days. At the time of my evaluation, there was no family available. REVIEW OF SYSTEMS: Per history of present illness. PHYSICAL EXAMINATION: Vital Signs: Temperature 98.1 degrees, pulse 102, respirations 20, blood pressure 113/60. Generally: Patient was drowsy. She did arouse and answer a couple my questions. Speech is somewhat slurred. HEENT: Normocephalic, atraumatic. Pupils equal, round, reactive to light. Cardiovascular: Regular rate and rhythm. Respiratory: Lung sounds essentially clear. Abdomen: Soft. Tenderness with palpation. Extremities: No lower extremity edema noted. DIAGNOSTIC RESULTS: Laboratory: Hematology--WBC 15.66, hemoglobin 7.5, hematocrit 23.2, MCV 108.9, platelet 167. Chemistry: Sodium 149, potassium 3.5, chloride 124, CO2 13. BUN 32, creatinine 1.7, glucose 127, phosphorus 3.3, magnesium 2.0. Iron 44, TIBC 128, percent saturation 34, ferritin 1625. Total bilirubin 1.54, AST 14, ALT 10, alkaline phosphatase 67. C-reactive protein 107.76. Total protein 5.6, albumin 2.0. Amylase 418, lipase 519; that was on 04/01/2019. Vitamin B 12 greater than 2000, folate 39.4, TSH 3.12. IMAGIN. Abdominal pelvis CT scan on 03/28/2019 without contrast showed a small dermoid cyst at the right ovary with recommended outpatient follow up to an PRECISION LATHE OPERATOR. 2. Fatty change of the liver. ASSESSMENT AND PLAN: 1. Pancreatitis. Will repeat her amylase and lipase today. She has had clear liquids ordered. Recommend small amount of liquid sips and see how she tolerates and further progression as she tolerates. 2. Metabolic acidosis. 3. Elevated BUN and creatinine. Patient has had Nephrology consultation. 4. Leukocytosis has improved. 5. Chronic alcoholism, tobacco abuse, marijuana abuse. Recommend she avoid these. 6. Recommend to increase her intravenous fluid to 100 mL an hour. We will repeat her amylase and lipase tomorrow. Will continue to follow. Further plans to be made according to her progress. I have discussed this case with Dr. Gonzalez. Further plans will be made as needed. Thank you for this consultation. Dictated by KYLE Omer for Ham Gonzalez MD cc: KYLE Cai MD
[2019-04-02 13:45] LABS: AMYLASE 354 U/L (20-200); LIPASE 487 U/L (13-60)
[2019-04-02 14:18] LABS: URINE SOURCE VOIDED
[2019-04-02 14:23] LABS: BILIRUBIN URINE NEGATIVE (NEGATIVE); BLOOD URINE MODERATE (NEGATIVE); COLOR YELLOW; GLUCOSE URINE NEGATIVE (NEGATIVE); KETONE URINE NEGATIVE (NEGATIVE); LEUKOCYTES URINE LARGE (NEGATIVE); NITRITE URINE NEGATIVE (NEGATIVE); PROTEIN URINE 30 mg/dL (NEGATIVE); TURBIDITY URINE HAZY (CLEAR); UR EPITHELIAL CELLS <10 /HPF (<10); URINE BACTERIA NEGATIVE /HPF; URINE WBC 20-40 /HPF (<10); UROBILINOGEN URINE NORMAL (NORMAL)
[2019-04-02 14:32] LABS: UR PROT RANDOM 48.6 mg/dL
[2019-04-02] MEDS ORDERED: ULTRAM PO PRN (14:34)
--- NOTE | 2019-04-02 15:09 | Diag Imaging Result Doc PS360 ---
US RENAL 2 (RETROPER) COMPLETE - 04/02/2019 INDICATION: johanny/arf TECHNIQUE: COMPARISON: CT from 03/28/2019 FINDINGS: The kidneys are normal in echotexture. No hydronephrosis, mass, or large renal stones. The right kidney measures 14.5 x 6.1 x 5 cm. The left kidney measures 14.1 x 7.6 x 7.1 cm. Urinary bladder is obscured. There is a Regan catheter in place. IMPRESSION: Negative exam. Electronically signed by Zack Winters 04/02/2019 3:07 PM
[2019-04-02] MEDS: ZOSYN 3.375 GM in NS 50 ML IV SCH ×2 (16:17→20:13)
--- NOTE | 2019-04-02 16:48 | PROGRESS NOTE ---
DATE: 04/02/2019 INTERVAL HISTORY: The patient is quite somnolent this morning. She does arouse and stays awake as long as you continue interacting with her but immediately falls asleep when she is not being interacted with. One low-grade fever overnight to 100.8. No signs of alcohol withdrawal at this point. Tolerating clears when she is awake enough to take p.o. REVIEW OF SYSTEMS: Twelve point review of systems is negative except as per interval history. LABORATORY DATA: WBC 15.6, hemoglobin 7.5, hematocrit 23.2, platelets 167,000. Sodium 149, potassium 3.5, BUN 13, bicarbonate 13, BUN 32, creatinine 1.7, glucose 127, total bilirubin 1.5, AST 14, ALT 10, alkaline phosphatase 67, albumin 2, total protein 5.6, lipase 47. Urinalysis with large leukocytes, 20 to 40 WBCs, 10 to 20 RBCs, no epithelial cells. IMAGING: Renal ultrasound unremarkable. Chest x-ray from yesterday with minimal left lower lobe atelectasis. VITAL SIGNS: T-max 100.8 degrees, pulse 102, respirations 20, blood pressure 113/60, O2 saturation 100% on room. PHYSICAL EXAMINATION: General: Asleep, but arousable. No acute distress. Vitals: As above. HEENT: Normocephalic, atraumatic. Moist mucous membranes. No cervical adenopathy. Cardiovascular: Minimally tachycardic but regular. No murmurs noted. Pulmonary: Clear to auscultation bilaterally. No wheezing, rales, or rhonchi. Abdomen: Soft minimal epigastric tenderness. Nondistended. Bowel sounds positive. Extremities: Peripheral pulses intact. No clubbing or cyanosis. Neurologic: Cranial nerves grossly intact. No focal deficits identified. Psychiatric: The patient asleep and arousable with some difficulty. Follows commands well. Appears to be oriented, but tends to want to fall back asleep and mumble if she is not continuously interacted with. Skin: New rashes or lesions identified. No jaundice. ASSESSMENT AND PLAN: 1. Likely acute alcoholic pancreatitis. Patient with markedly elevated lipase, mildly elevated bilirubin, AST, ALT, alkaline phosphatase on admission. Transaminitis, transaminase is now. Bilirubin improving. Patient's pain appears to be much improved. On clear liquid diet, which we will attempt to advance adjusting medications. Initial CT showed extensive fatty liver but no gallbladder or pancreatic abnormalities. 2. Fever and leukocytosis may be reactive secondary to pancreatitis but patient on Zosyn empirically. Urinalysis suggestive of possible urinary tract infection so will continue that until cultures are available. 3. Acute kidney injury, possible acute tubular necrosis. Urine output reasonable. Creatinine improving. Patient's previous baseline normal. Creatinine 0.7. It has been as high as 380. Continue fluids and monitor. 4. Alcohol abuse. Had some tremors concerning for possible withdrawal at one point but patient quite sedated today. I will stop Librium but will use Ativan p.r.n. if she begins having significant tremors again. We will also go ahead and discontinue IV narcotics and change management specialist to p.o. tramadol to try to improve her mental status. 5. Anemia likely anemia of chronic disease related to this. 6. Hypernatremia. New finding. Patient is not on any diuretics. They hypernatremia is fairly mild. We will monitor 1 more day. If remains high tomorrow, we will start her on some normal saline. 7. Fatty liver. Patient with advanced hepatic liver versus early cirrhosis on imaging. Bilirubin still elevated, but does appear to be trending down. INR was essentially normal.
--- NOTE | 2019-04-02 17:40 | NEPHROLOGY CONSULTATION ---
DATE: 04/02/2019 REASON FOR ADMISSION: Pancreatitis. REASON FOR CONSULTATION: Assist with management, acute kidney injury. CONSULTING PHYSICIAN: Dr. Chung. HISTORY OF PRESENT ILLNESS: This is a 48-year-old female, admitted to [facility] on March 28. She was transferred over to [facility] on the secondary to worsening overall condition. The patient is able to give us a history of being sick for some weeks prior to coming into the hospital. She states she lives at home and does not follow up with any medical care. She states that her sisters came and saw her and made her come to the emergency room. The patient states that she had had weakness and diarrhea for several weeks. She states that she has had decreased oral intake, although she does drink heavily. Initial labs and imaging indicated pancreatitis and LEAH. Her creatinine on admission was 3.3. She has had progressive improvement, and yesterday, creatinine was 2.3. Urine output has been adequate. PAST MEDICAL HISTORY: Denies. States she does see a physician. MEDICATION: Does not take any home medications. ALLERGIES: None. FAMILY HISTORY: Father had congestive heart failure. SOCIAL HISTORY: She lives at home, apparently alone. She drinks heavily, possibly up to a case a day. She smokes at least a pack of cigarettes a day. She denies other drugs or street drugs use. REVIEW OF SYSTEMS: Dizziness, weakness, cough, diarrhea, edema, shortness of breath. PHYSICAL EXAMINATION: Vital Signs: Temperature 100.8 degrees, pulse 104, respiratory rate 18, blood pressure 134/72. Intake and Output: Intake 1.5 L. Output 3.2 L. General: This is a chronically ill-appearing middle-aged female, resting in bed. Her speech is slurred, but she we are able to understand her. HEENT: Normocephalic, atraumatic. Conjunctivae are pale. Her oral mucosa is moist. Neck: Supple. She has trace JVD. Cardiovascular: Regular rate and rhythm. Pulmonary: She has got rhonchi bilaterally with a positive cough. She states it is yellow sputum. Abdomen: Tender to palpation. Positive bowel sounds. Genitourinary: Catheter. Extremities: She has 1 to 2+ lower extremity edema. Integumentary: Skin is warm and dry. Neurologic: Again drowsy with slurred speech. DIAGNOSTIC STUDIES: WBC 15.6, hemoglobin 7.5. Sodium 149, potassium 3.5, chloride 124, CO2 of 13, BUN 32, creatinine 1.7, her albumin is 2. Her amylase is 354, lipase is 487. Urine with positive proteinuria, large leukocytes. Her urine random sodium was 61. Imaging reveals kidney size 14 x 14 cm with fatty change to the liver on abdominal and pelvic CT. ASSESSMENT AND PLAN: 1. Acute kidney injury. The patient's renal function back in November was normal. Her renal function has improved steadily since admission, and she is down to 1.7 this afternoon. We will continue her IV fluids as ordered. She does not have any indication for intervention otherwise at this time. 2. Pancreatitis. She has been followed by primary and Gastroenterology. Again, we agree with their plan to continue with IV fluid resuscitation. 3. Electrolytes, acid-base balance. Her CO2 has improved over the last 24 hours. Her sodium is slowly rising. It is noted that she is on Clinimix as well as normal saline. It appears her normal saline has been placed on hold. Dictated by KYLE Wiley for Hilario Mock MD Face to face encounter, data reviewed, discussed with Jo-Ann Abrams on 04/02/19. I agree with the above assessment and plan of care. cc: Hilario Mock MD [facility]
--- NOTE | 2019-04-02 20:24 | INFECTIOUS DISEASE PROGRESS NO ---
DATE: 04/02/2019 PRESENT ILLNESS: Ms. Dowling is being treated for alcohol-induced pancreatitis with leukocytosis. We also think that she may have had a urinary tract infection due to results of the urinalysis, although the culture did not grow anything. MEDICATIONS: She has been receiving Zosyn 2.25 g IV every 6 hours as a renally modified dose. PHYSICAL EXAMINATION: Vital Signs: Temperature is 98.1 degrees, pulse rate 102, respiratory rate 20, blood pressure 113/60, O2 saturation is 100% on room air. General: This is a chronically ill- appearing, middle-aged female. She is lying in the bed currently in no acute distress. HEENT: Atraumatic, normocephalic. Oral mucous membranes are pink and moist. Conjunctivae are pale. Sclerae are icteric. Neck: Supple. Trachea is midline. Cardiovascular: Heart rate and rhythm are regular. Sinus rhythm on the monitor. Respiratory: Lung sounds are clear to auscultation bilaterally with some mild rhonchi initially, which she cleared when asked to cough. Abdomen: Soft, round, and tender to the midepigastric area. Bowel sounds are audible. Neurologic: She is drowsy and lethargic, but arousable. Generalized weakness noted, but able to move around in the bed with the right lower extremity slightly weaker than the left after a previous fall. LABORATORY AND X-RAY: Today, her white count is 15.66, hemoglobin 7.5, platelet count 167,000. Creatinine 1.7. GFR 39. Total bilirubin 1.54, AST 14, ALT 10, alkaline phosphatase 67. C-reactive protein 107.76. Amylase is 354, lipase 487. A recheck of her urine showed hazy, yellow urine with 20 to 40 WBCs and negative urine bacteria. Blood and urine cultures have shown no growth. Chest x-ray this morning showed minimal left lower lobe atelectasis. ASSESSMENT AND PLAN: Ms. Dowling has pancreatitis with a leukocytosis which is improving. At this point, her acute kidney injury is also improving with a GFR up to 39, so we will increase the Zosyn to 3.375 g intravenously every 6 hours. Blood work has already been put in for tomorrow morning. She has been c/o diarrhea for the last 3-4 weeks. We will check her for C. Diff toxin and antigen and culture the stool. These plans have been discussed with and recommended by Dr. Kearney. COMORBIDITIES: for Ms. Dowling include alcoholism, illicit drug use, multiple falls, iron deficiency anemia, and history of gastric bypass. Dictated by KYLE Lamb for Srikanth Kearney MD cc: Srikanth Kearney MD [facility]
[2019-04-03] MEDS: ZOSYN 3.375 GM in NS 50 ML IV SCH ×4 (03:11→23:45)
[2019-04-03 06:41] LABS: BASO# 0.05 X1000 (0.0-0.2); BASO% 0.4 % (0.0-0.8); HEMATOCRIT 21.6 % (37.0-47.0); HEMOGLOBIN 7.1 g/dL (12.0-16.0); IMM GRAN# 0.46 X1000 (0.0-0.04); IMM GRAN% 3.2 % (0.0-0.5); LYMPH# 1.81 X1000 (1.2-3.4); LYMPH% 12.7 % (20.5-51.1); MCH 36.2 PG (27-31); MCHC 32.9 g/dL (33-37); MCV 110.2 FL (81-99); MONO# 0.98 X1000 (0.11-0.59); MONO% 6.9 % (1.7-9.3); NEUT# 10.94 X1000 (1.4-6.5); NEUT% 76.8 % (42.2-75.2); PLT 147 X1000 (130-400); RBC 1.96 XMIL (4.2-5.4); RDW 15.9 % (11.5-14.5); WBC 14.24 X1000 (4.8-10.8)
[2019-04-03 07:15] LABS: ALB/GLOB RATIO 0.5; ALBUMIN 1.8 g/dL (3.5-5.0); AMYLASE 292 U/L (20-200); CALCIUM 8.2 mg/dL (8.8-10.2); CREATININE 1.5 mg/dL (0.5-0.9); POTASSIUM 3.5 mmol/L (3.5-5.1); TOTAL BILIRUBIN 1.18 mg/dL (0.20-1.00); TOTAL PROTEIN 5.5 g/dL (6.3-8.3)
[2019-04-03 07:29] LABS: LIPASE 420 U/L (13-60)
[2019-04-03] MEDS ORDERED: TYLENOL PO PRN (08:02)
[2019-04-03 08:26] LABS: ALLEN TEST YES; BE -9.3 mmoll (-3.0-3.0); BLOOD TYPE ARTERIAL; HCO3-(ACT) 17.7 mmoll (20.0-26.0); METHB 0.4 % (0.0-1.5); O2(CT) 10.7 mL/dL (15.0-23.0); O2HB 96.1 % (95.0-99.0); PCO2(98.6) 24 mmHg (35-45); PO2(98.6) 79 mmHg (60-100); SAMPLE BLOOD; SAO2 99.2 % (95.0-100.0); THB 7.8 g/dL (11.5-17.4); pH(98.6) 7.39 (7.35-7.45)
[2019-04-03 08:27] LABS: MODALITY ROOM AIR
[2019-04-03] MEDS: M.V.I.-12 10 ML, FOLIC ACID 1 MG, MAGNESIUM SULFATE 1 GM, THIAMINE 100 MG in NS 1,000 ML IV SCH (10:17)
[2019-04-03] MEDS: CLINIMIX E 4.25%-5% SOLUTION 1,000 ML IV SCH (10:17)
--- NOTE | 2019-04-03 13:59 | NEPHROLOGY PROGRESS NOTE ---
DATE: 04/03/2019 SUBJECTIVE: Patient resting in bed. She had a fever overnight. She is tearful, states that her father last night. OBJECTIVE: Vital Signs: Temp. 100.4. Pulse 101, respiratory rate 18, blood pressure 116/56, intake 1.9 L, output 2.4 L. General: Middle-aged female, resting in bed. Awake and alert. She appears to feel poorly. Her speech continues slurred. HEENT: Normocephalic, atraumatic. Conjunctivae pale. Oral mucosa is moist. Neck: Supple. Trace JVD. Cardiovascular: Regular rate and rhythm. Pulmonary: Clear bilaterally. There is no rhonchi today. No obvious cough. Abdomen: Soft. Again tender to palpation. : Continues with Regan catheter. Extremities: 1 to 2+ lower extremity edema, worse pedal. Integumentary: Skin is warm and dry. LAB DATA: WBC 14.2, hemoglobin 7.1, sodium 145, potassium 3.5, CO2 13. BUN 28, creatinine 1.5, calcium 8.2, albumin 1.8. ASSESSMENT AND PLAN: 1. Acute kidney injury. Renal function continues to improve modestly. Continue current treatment. 2. Pancreatitis, followed by primary and GI. Continue with fluid resuscitation. 3. Electrolytes, acid-base balance. She continues with moderate metabolic acidosis. Her sodium has been stable overnight. I changed her fluids to LR. 4. Hypervolemia. She does have hypoalbuminemia. She is receiving Clinimix at this time. Consider albumin in addition. Dictated by KYLE Wiely for Hilario Mock MD Face to face encounter, data reviewed, discussed with Jo-Ann Abrams on 04/03/19. I agree with the above assessment and plan of care. cc: Hilario Mock MD [facility]
--- NOTE | 2019-04-03 16:36 | PROGRESS NOTE ---
DATE: 04/03/2019 INTERVAL HISTORY: The patient much less somnolent. Pain markedly improved. Tolerating liquid diet thus far. Initial symptoms markedly improved but had significant fever to 101.2 overnight. Also with intermittent tachycardia. Denies cough, dysuria, diarrhea, nausea, vomiting. REVIEW OF SYSTEMS: Twelve point review of systems negative except as per interval history. LABS: WBC 14.2, hemoglobin 7.1, hematocrit 21.6, platelets 147,000. ABG with pH 7.39, pCO2 24, PO2 79 on room air. Sodium 145, potassium 3.5, bicarb 13, BUN 28, creatinine 1.5, total bilirubin 1.18, lipase 420, lactate 1.7. Urinalysis with large leukocytes, 20 to 40 WBCs, 10 to 20 RBCs. VITALS: T-max 101.2 degrees, pulse 95, respirations 18, blood pressure 116/77. O2 saturation 100% on room air. PHYSICAL EXAM: General: No acute distress. Vitals: As above. HEENT: Normocephalic, atraumatic. Moist mucous membranes. No cervical adenopathy. Cardiovascular: Regular rate and rhythm at the time of my exam. Pulmonary: Clear to auscultation bilaterally. No wheezing, rales, or rhonchi. Abdomen: Soft, essentially nontender, nondistended. Bowel sounds positive. Extremities: Peripheral pulses intact. No clubbing or cyanosis. Neurologic: Cranial nerves grossly intact. No focal deficits seen. Psychiatric: Patient awake, alert, oriented x3. Speech slightly slowed as appropriate. Cooperative. Skin: No new rashes or lesions seen. Not jaundiced. ASSESSMENT AND PLAN: 1. Likely acute alcoholic hepatitis and alcoholic hepatitis. Patient with markedly elevated lipase on admission, mildly elevated bilirubin, AST, ALT, alkaline phosphatase. Lipase remains somewhat elevated, but the rest has essentially normalized. The patient's symptoms much improved aside from fevers as above. Tolerating liquid diet. Pain minimal. No vomiting. We will go ahead and advance diet and monitor. 2. Fever and leukocytosis. Could potentially still be due to inflammation from the pancreatitis, but given improvement in her abdominal symptoms but ongoing fever and leukocytosis, there is concern for other source of infection. Urinalysis suggestive of urinary tract infection, although she has no symptoms. Chest x-ray clear. Repeating blood cultures, but they have been negative. Had some diarrhea yesterday, but Clostridium difficile was negative. Currently on Zosyn which we will continue for now pending further recommendations from ID. 3. Acute kidney injury. Creatinine continues to improve slowly. Baseline essentially normal with creatinine 0.7, and it has been as high as 3.3 on admission, down to 1.5 today. Continue hydration and encourage p.o. intake. 4. Anemia, likely anemia of chronic disease. Monitor. 5. Hypernatremia. Resolved. Monitor. 6. Fatty liver versus early cirrhosis. Bilirubin is still minimally elevated but closing in on normal. 7. Disposition. Patient's abdominal symptoms are largely resolved. We will go ahead and advance diet to soft and see how she does. However, still having fevers of unclear origin. If she tolerates diet and fevers go away, then may be able to be discharged in the next 24 to 48 hours, but we will see what her temperature does and what Infectious Disease says. ABHIJEET
--- NOTE | 2019-04-03 19:32 | INFECTIOUS DISEASE PROGRESS NO ---
DATE: 04/03/2019 PRESENT ILLNESS: Ms. Dowling is being treated for alcohol-induced pancreatitis with leukocytosis. These seem to be continuing to improve. We think she may have a urinary tract infection as well, although nothing grew on the culture. She had a fever spike this morning of 101.2. MEDICATIONS: She is receiving Zosyn 3.375 grams IV every 6 hours. Today is day 6 of Zosyn PHYSICAL EXAMINATION: Vital Signs: Temperature is 97.5, pulse rate 85, respiratory rate 15, blood pressure 134/76, O2 saturation 100% on room air. She did spike a fever this morning of 101.2. General: This is a chronically ill-appearing middle-aged female lying in the bed, currently in no acute distress. HEENT: Atraumatic, normocephalic. Oral mucous membranes are pink and moist. Conjunctivae are pale. Sclerae are icteric. Neck: Supple. Trachea is midline. Cardiovascular: Heart rate and rhythm are regular. Normal sinus rhythm on the monitor. Respiratory: Lung sounds have some coarse rhonchi in the upper lobes which cleared when she coughed. Diminished in the mid and bases. Abdomen: Soft and round, and today she states it is nontender. Bowel sounds are hypoactive. Neurologic: She is more awake and alert today, however, still mildly groggy. Oriented and appropriate. Able to move all extremities with generalized weakness. She does have some bilateral pretibial edema noted. LABORATORY AND X-RAY: Today her white count is 14.24, hemoglobin 7.1, platelet count 147,000. Creatinine is 1.5, GFR 45. On room air this morning, her pH is 7.39 pCO2 is 24, PO2 is 79, HC03 is 17.7. Total bilirubin is 1.18, AST 13, ALT 8, alkaline phosphatase 58. Amylase 292 lipase 420. No imaging reports today. ASSESSMENT AND PLAN: Ms. Dowling is being treated for the possibility of a urinary tract infection with a urinalysis that showed bacteria and WBCs. She has pancreatitis and leukocytosis, which both seem to be improving. There is no abdominal pain today, and her leukocytosis continues to diminish. She did have a fever spike this morning, and blood cultures have been redrawn. We will check another urine culture. She has a chest x-ray ordered for in the morning.These plans have been discussed with and recommended by Dr. Kearney. COMORBIDITIES: Include alcoholism, illicit drug use, multiple falls, iron- deficiency anemia, and gastric bypass. Dictated by KYLE Lamb for Srikanth Kearney MD cc: Srikanth Kearney MD [facility]
--- NOTE | 2019-04-03 20:47 | GASTROENTEROLOGY PROGRESS NOTE ---
DATE: 04/03/2019 SUBJECTIVE: Patient is more awake today. She states her abdominal pain has improved. She has been able to tolerate some liquids per her report. She is upset because her father yesterday. The is planned for Monday. OBJECTIVE: Vital Signs: Temperature 97.5 degrees, pulse 85, respirations 15, blood pressure 134/76. General: Patient is awake. She is more alert. She still has some slurred speech. I believe her Librium was discontinued and she has Ativan ordered as needed. Abdomen: Soft. Still some tenderness. Otherwise, positive bowel sounds. LABORATORY: Hematology: WBC 14.24, hemoglobin 7.1, hematocrit 21.6, MCV 110.2, platelets 147,000. Chemistry: Sodium 145, potassium 3.5, chloride 120, CO2 of 13, BUN 28, creatinine 1.5, glucose 101. Total bilirubin 1.18, AST 13, ALT 8, alkaline phosphatase 58. C-reactive protein 107.76. Total protein 5.5, albumin 1.8, amylase 292, lipase 420. ASSESSMENT AND PLAN: 1. Acute kidney injury. Nephrology is following. 2. Pancreatitis with amylase and lipase improving. 3. Electrolyte imbalance/metabolic acidosis. Nephrology is also following. 4. Continue current management. Continue liquid diet for now. Amylase and lipase numbers are improving. Further plans will be made according to her progress. I have discussed this case with Dr. Gonzalez. Dictated by KYLE Omer for Ham Gonzalez MD cc: KYLE Cai MD
[2019-04-03] MEDS: LR 1,000 ML IV SCH (23:41)
[2019-04-04] MEDS: CLINIMIX E 4.25%-5% SOLUTION 1,000 ML IV SCH ×2 (01:16→14:28)
[2019-04-04] MEDS: ZOSYN 3.375 GM in NS 50 ML IV SCH ×3 (05:34→17:53)
--- NOTE | 2019-04-04 07:10 | Diag Imaging Result Doc PS360 ---
EXAM: CHEST-1 VIEW 04/04/2019 HISTORY: cough TECHNIQUE: AP portable at 0549 COMMENT: There is increased alveolar opacity in the left lower lobe compared to 04/02/2019. There is increased blunting of the left costophrenic angle. IMPRESSION: Worsened atelectasis versus pneumonia left lower lobe. Electronically signed by Dominci Reyes 04/04/2019 7:07 AM
--- NOTE | 2019-04-04 07:13 | NEPHROLOGY PROGRESS NOTE ---
DATE: 04/04/2019 SUBJECTIVE: Patient resting in bed. She states that her abdomen is not as tender today. OBJECTIVE: Vital Signs: Temperature 99 degrees, pulse 94, respiratory rate 20, blood pressure 137/86. Intake 3.3 L. Output 4.6 L. General: Middle-aged female, resting in bed. No acute distress. HEENT: Normocephalic, atraumatic. Oral mucosa moist. Neck: Supple with trace JVD in a reclined position. Cardiovascular: Regular rate and rhythm. No murmur. Pulmonary: She is clear bilaterally. No cough noted this morning. Abdomen: Soft, positive bowel sounds. Continues with some mild diffuse tenderness. Genitourinary: Regan catheter, clear yellow urine. Extremities: 1+ edema pretibial. Continues with close to 2+ pedal. Does appear to be somewhat improving. Integumentary: Skin is warm and dry otherwise. LABORATORY DATA: Pending. IMAGING: Chest x-ray pending. ASSESSMENT AND PLAN: 1. Acute kidney injury. She has had a modest improvement with renal function over the last previous days. Her renal function is pending this morning. Her urine output has been excellent over the last 24 hours at greater than 4 L out. 2. Pancreatitis. Followed by primary and GI. Improving. 3. Electrolytes, acid-base balance. She continues on lactated Ringer's and Clinimix. No changes today. 4. Fluid volume. She was in negative fluid balance, greater than a liter overnight, improving. Dictated by KYLE Wiley for Hilario Mock MD Face to face encounter, data reviewed, discussed with Jo-Ann Abrams on 04/04/19. I agree with the above assessment and plan of care. cc: Hilario Mock MD [facility]
[2019-04-04 07:56] LABS: BASO# 0.04 X1000 (0.0-0.2); BASO% 0.3 % (0.0-0.8); HEMATOCRIT 19.3 % (37.0-47.0); HEMOGLOBIN 6.2 g/dL (12.0-16.0); IMM GRAN# 0.19 X1000 (0.0-0.04); IMM GRAN% 1.4 % (0.0-0.5); LYMPH# 1.89 X1000 (1.2-3.4); MCH 35.4 PG (27-31); MCHC 32.1 g/dL (33-37); MCV 110.3 FL (81-99); MONO# 0.91 X1000 (0.11-0.59); MONO% 6.7 % (1.7-9.3); MPV 9.8 FL (7.4-10.4); NEUT# 10.47 X1000 (1.4-6.5); NEUT% 77.6 % (42.2-75.2); PLT 144 X1000 (130-400); RBC 1.75 XMIL (4.2-5.4); RDW 15.3 % (11.5-14.5)
[2019-04-04 08:31] LABS: ALB/GLOB RATIO 0.5; ALBUMIN 1.9 g/dL (3.5-5.0); CREATININE 1.5 mg/dL (0.5-0.9); POTASSIUM 3.7 mmol/L (3.5-5.1); TOTAL BILIRUBIN 1.04 mg/dL (0.20-1.00); TOTAL PROTEIN 5.4 g/dL (6.3-8.3)
[2019-04-04] MEDS: M.V.I.-12 10 ML, FOLIC ACID 1 MG, MAGNESIUM SULFATE 1 GM, THIAMINE 100 MG in NS 1,000 ML IV SCH (11:18)
[2019-04-04] MEDS: LR 1,000 ML IV SCH (11:19)
[2019-04-04] MEDS ORDERED: NS 500 ML ONE (13:50)
[2019-04-04] MEDS: ZYVOX PO SCH ×2 (14:31→21:39)
--- NOTE | 2019-04-04 15:24 | PROGRESS NOTE ---
DATE: 04/04/2019 INTERVAL HISTORY: The patient still with one low-grade fever overnight to 100.3, but fevers appear to be trending down overall. She tolerated full liquid diet well yesterday. Advanced to regular diet this morning, and doing okay with that so far. No complaints. No other acute events overnight. REVIEW OF SYSTEMS: Twelve point review of systems negative except as per interval history. LABORATORY: WBC 13.5, hemoglobin 6.2, hematocrit 19.3, and platelets 144,000. Sodium 141, potassium 3.7, bicarbonate 15, BUN 27, creatinine 1.5, and bilirubin 1.04. VITALS: T-max 100.3 degrees, pulse of 94, respirations 18, blood pressure 135/78, O2 saturation 100% on room air. PHYSICAL EXAMINATION: General: No acute distress. Vitals: As above. HEENT: Normocephalic, atraumatic. Moist mucous membranes. No cervical adenopathy. Cardiovascular: Regular rate and rhythm. No murmurs noted. Pulmonary: Clear to auscultation bilaterally. No wheezing, rales or rhonchi. Abdomen: Soft, nontender, and nondistended. Bowel sounds positive. Extremities: Peripheral pulses intact. No clubbing or cyanosis. Neurologic: Cranial nerves grossly intact. No focal deficits. Psychiatric: Awake, alert, and oriented x3. Speech is still a little slow but appropriate. The patient is cooperative. Skin: No new rashes or lesions seen. ASSESSMENT AND PLAN: 1. Alcoholic pancreatitis and alcoholic hepatitis. Patient with markedly elevated lipase on admission, mildly elevated bilirubin, AST, ALT and alkaline phosphatase. Lipase remains moderately elevated, but LFTs otherwise normalized. The patient's symptoms essentially resolved, but still with some low-grade fevers as above. Tolerating diet. Monitoring. 2. Fever and leukocytosis. Difficult to attribute pancreatitis at this point. Urinalysis was suggestive of UTI, although patient did not really endorse any urinary symptoms. On Zosyn empirically. Leukocytosis is improved, and fevers appear to be trending down so we will continue Zosyn for now. If she continues to improve, then we may be able to transition to p.o. antibiotic and discharge tomorrow. Both initial and repeat blood cultures show no growth so far. Urine cultures no growth x2. ID on board and assisting. 3. Anemia. No signs or symptoms of bleeding. Iron studies most consistent with anemia of chronic disease. Hemoglobin down to 6.2 this morning so we will go ahead and give a unit, but I do not see anything that looks blood-loss anemia. 4. Acute kidney injury. The patient at baseline appears to be essentially normal, but only 1 previous lab back in November. Creatinine was up to 3.3 on admission, and has trended down steadily since then, although stable over the last couple of days at 1.5. Continue gentle hydration but may be at or approaching her new baseline. 5. Hypernatremia resolved. Monitor. 6. Fatty liver versus early cirrhosis. Bilirubin just very slightly elevated, but essentially normal at this point. Given anemia and borderline low platelet count, suspect she likely does have at least early cirrhosis. DISPOSITION: The patient's abdominal symptoms essentially resolved. Still some fevers. If the fevers will go away and repeat blood cultures remain negative, then we may be able to transition to p.o. antibiotic for possible urinary tract infection and discharge tomorrow but, we will monitor temperature and see what ID says.
--- NOTE | 2019-04-04 20:15 | INFECTIOUS DISEASE PROGRESS NO ---
DATE: 04/04/2019 HISTORY OF PRESENT ILLNESS: The patient has alcohol-induced pancreatitis with an associated leukocytosis. I think she has a urinary tract infection as manifested by a urinalysis which had white cells and bacteria, even though the culture did not grow an organism. Yesterday she had a spike in her fever, and on chest x-ray, the patient has a left lower lobe opacity. Therefore, I think the patient, in addition to the pancreatitis and urinary tract infection, has pneumonia. MEDICATIONS: The patient is on Zosyn. This is day 7 of treatment with it, and this is the first day that the patient has received Zyvox which was ordered. PHYSICAL EXAMINATION: Vital Signs: Temperature is 97.4, pulse 113, respirations 18, blood pressure 124/63. General: This is a [id number] middle-aged female. She is sitting up today and is more alert. Head/eyes/ears/nose/throat: She can hear my spoken words and see near objects. She does not have any white coating on her tongue. She does have scleral icterus. Neck: No pain with movement of her neck. Lungs: Clear to auscultation. Cardiovascular: Regular heart rate. Abdomen: Soft and nontender. Neurologic: The patient is more alert today. She can move her extremities. She does not have any tremor. LAB AND X-RAY DATA: CBC shows a white count of 13,500, hemoglobin 6.2, platelet count 144,000. Creatinine is 1.5. GFR is 45. Urine cultures negative. Blood cultures pending. Chest x-ray shows worsening of the left lower lobe opacity. ASSESSMENT AND PLAN: The patient has pancreatitis and a urinary tract infection, and also it appears now that the patient may have pneumonia. My plan is to continue Zosyn, which the patient has been taking for approximately 7 days, and Zyvox which was started yesterday, so this is day 1 of treatment with Zyvox. COMORBIDITIES: Alcoholism and illicit drug use. Multiple falls, iron deficiency anemia, and gastric bypass. cc: Srikanth Kearney MD
[2019-04-05] MEDS: ZOSYN 3.375 GM in NS 50 ML IV SCH ×2 (00:57→06:14)
[2019-04-05] MEDS: CLINIMIX E 4.25%-5% SOLUTION 1,000 ML IV SCH ×2 (04:52→06:37)
[2019-04-05] MEDS: LR 1,000 ML IV SCH (04:53)
[2019-04-05 07:31] LABS: BASO# 0.04 X1000 (0.0-0.2); BASO% 0.3 % (0.0-0.8); EOS# 0.03 X1000 (0.0-0.7); EOS% 0.2 % (0.0-10.0); HEMATOCRIT 22.7 % (37.0-47.0); HEMOGLOBIN 7.4 g/dL (12.0-16.0); IMM GRAN# 0.13 X1000 (0.0-0.04); LYMPH% 15.1 % (20.5-51.1); MCHC 32.6 g/dL (33-37); MCV 101.3 FL (81-99); MONO# 0.86 X1000 (0.11-0.59); MONO% 6.5 % (1.7-9.3); MPV 9.6 FL (7.4-10.4); NEUT# 10.16 X1000 (1.4-6.5); NEUT% 76.9 % (42.2-75.2); PLT 129 X1000 (130-400); RBC 2.24 XMIL (4.2-5.4); RDW 20.8 % (11.5-14.5); WBC 13.22 X1000 (4.8-10.8)
[2019-04-05 07:43] LABS: ALB/GLOB RATIO 0.6; ALBUMIN 2.1 g/dL (3.5-5.0); CALCIUM 8.2 mg/dL (8.8-10.2); CREATININE 1.6 mg/dL (0.5-0.9); POTASSIUM 3.8 mmol/L (3.5-5.1); TOTAL PROTEIN 5.6 g/dL (6.3-8.3)
[2019-04-05] MEDS: ZYVOX PO SCH (08:34)
[2019-04-05] MEDS: M.V.I.-12 10 ML, FOLIC ACID 1 MG, MAGNESIUM SULFATE 1 GM, THIAMINE 100 MG in NS 1,000 ML IV SCH (08:34)
[2019-04-05 09:52] LABS: AMYLASE 231 U/L (20-200); LIPASE 280 U/L (13-60)
--- NOTE | 2019-04-05 13:36 | INFECTIOUS DISEASE PROGRESS NO ---
DATE: 04/05/2019 PRESENT ILLNESS: Ms. Dowling is being treated for alcohol-induced pancreatitis with a leukocytosis. There is a possibility of a urinary tract infection as seen on the urinalysis although the culture did not grow anything. She also spiked a fever a couple of days ago, and there was a possible pneumonia on the chest x-ray. MEDICATIONS: Today is day 8 of treatment with Zosyn, which is now at a dosage of 3.375 g IV every 6 hours, and day 2 of Zyvox 600 mg by mouth every 12 hours. PHYSICAL EXAMINATION: Vital Signs: Temperature is 98.3 degrees, pulse rate 92, respiratory rate 18, blood pressure 137/85. O2 saturation 100% on room air. General: This is a chronically ill- appearing middle-aged female. She is sitting up in bed, currently in no acute distress. HEENT: Atraumatic, normocephalic. Oral mucous membranes are pink and moist. Conjunctivae are pale. Neck: Supple. Trachea is midline. Cardiovascular: Heart rate and rhythm are regular. Normal sinus rhythm on the monitor. Respiratory: Lung sounds have some mild rhonchi in the upper lobes, diminished in the mid and bases. No work of breathing is noted. Abdomen: Soft, round, and nontender. Bowel sounds are active. Neurologic: She is awake, alert, and oriented. Speech is mildly slurred. She is able to move around in the bed independently. LABORATORY AND X-RAY: Today her white count is 13.22, hemoglobin 7.4, platelet count 129,000. Creatinine is 1.6. GFR 42. Total bilirubin is 1, AST 12, ALT 6, alkaline phosphatase 54. Amylase is 231. Lipase is 280. No radiology reports today. ASSESSMENT AND PLAN: Ms. Dowling is being treated for pancreatitis and urinary tract infection as well as a pneumonia. She has been afebrile for the last 24 hours. Her leukocytosis, as well as her pancreatic enzymes continue to improve. She states that her father's is tomorrow, and she will be leaving in the morning. She may come back to the ER to be readmitted, but that remains to be seen. At this point, she has a thrombocytopenia, so we will not continue the Zyvox. Her IV has come out, so we will also discontinue the Zosyn, and order Augmentin 875mg p.o. and Cipro 500mg p.o. every 12 hours. We will f/u with her in our office in 10 days, if she is not readmitted. These plans have been discussed with and recommended by Dr. Kearney. COMORBIDITIES: For Ms. Dowling include alcoholism as well as illicit drug use, multiple falls, iron deficiency anemia, and gastric bypass. Dictated by KYLE Lamb for Srikanth Kearney MD cc: Srikanth Kearney MD [facility]
--- NOTE | 2019-04-05 13:53 | NEPHROLOGY PROGRESS NOTE ---
DATE: 04/05/2019 SUBJECTIVE: She is doing well today. No shortness of breath. Eating. OBJECTIVE: Vital Signs: Blood pressure 137/85, heart rate 92, afebrile. General: No acute distress. Skin: Warm and dry. Neck: Neck vein distention is present with hepatojugular reflux. Lungs: Have equal breath sounds. No crackles. Abdomen: Soft, nontender. Bowel sounds present. Extremities: Trace edema. No clubbing or cyanosis. IMPRESSION: 1. Acute kidney injury. Creatinine/BUN are roughly stable since yesterday. Baseline creatinine 0.5. Steady improvement. 2. Volume status. Some evidence of volume expansion. Will stop her IV fluids. 3. Acid-base. Slow but progressive improvement in her non-gap acidosis. cc: Hilario Mock MD
--- NOTE | 2019-04-05 14:18 | GASTROENTEROLOGY PROGRESS NOTE ---
DATE: 04/05/2019 SUBJECTIVE: Patient states she is feeling better. Her abdominal pain has improved. She states she has tolerated a GI soft diet. She is hoping to go home because her father , and the is tomorrow. Her pancreatic enzymes are improving, amylase 231, lipase 280. OBJECTIVE: Vital Signs: Temperature 98.3 degrees, pulse 92, blood pressure 137/85. General: Patient is awake, alert, in no acute distress. She states she is tolerating a diet. Abdomen: Soft, currently nontender. Positive bowel sounds. LABORATORY: Hematology: WBC 13.22, hemoglobin 7.4, hematocrit 22.7, MCV 101.3, platelets 129,000. Chemistry 143, potassium 3.8, chloride 118, CO2 16, BUN 24, creatinine 1.6, glucose 85. Total bilirubin 1.00, AST 12, ALT 6, alkaline phosphatase 54, amylase 231, lipase 280. ASSESSMENT AND PLAN: 1. Alcoholic pancreatitis. Amylase and lipase numbers are improving. Liver function tests are normal. The patient seems to be tolerating her diet, and her abdominal pain has improved. 2. Fever and leukocytosis. The patient is being followed by Dr. Kearney on antibiotics. 3. Anemia. Will continue to follow. No evidence of active gastrointestinal bleeding. 4. Acute kidney injury. She is being followed by Nephrology. PLAN: Continue current management. She is tolerating a diet and has denied pain today. Her father , and the is tomorrow. She is wanting to go to the home whether she is discharged or has to leave against medical advice. As far as GI is concerned, since she is tolerating her diet and pain has improved, she can be discharged as far as GI is concerned but would recommend approval from other medical team. I have given her our contact information to make a followup appointment. If she continues to be in the hospital, we will follow over the weekend. Further plans will be made according to her progress. I have discussed this case with Dr. Gonzalez. Dictated by KYLE Omer for Ham Gonzalez MD cc: KYLE Cai MD
--- NOTE | 2019-04-05 16:22 | PROGRESS NOTE ---
DATE: 04/05/2019 INTERVAL HISTORY: The patient's abdominal symptoms remain resolved. No neelam fevers in the last 24 hours, and mildly elevated temperature early this morning to 100.1. No new complaints. No other acute events. The patient states that her father's is tomorrow, which other family members corroborate. She states that she is leaving in the morning regardless. REVIEW OF SYSTEMS: Twelve point review of systems is negative except as per interval history. LABORATORY DATA: WBC 13.2, hemoglobin 7.4, hematocrit 22.7, platelets 129,000. Sodium 143, BUN 24, creatinine 1.6, lipase 280. VITALS SIGNS: T-max 100.1 degrees, pulse 92, respirations 18, blood pressure 137/85, O2 saturation 100% on room air. PHYSICAL EXAMINATION: General: No acute distress. Vitals: As above. HEENT: Normocephalic, atraumatic. Moist mucous membranes. Neck: No cervical adenopathy. Cardiovascular: Regular rate and rhythm. No murmurs noted. Pulmonary: Minimal rales at right base, otherwise clear to auscultation bilaterally. Abdomen: Soft, nontender, nondistended. Bowel sounds positive. Extremities: Peripheral pulses intact. No clubbing or cyanosis. Neurologic: Cranial nerves grossly intact. No focal deficits. Psychiatric: Awake, alert, oriented x3. Cooperative. Skin: No new rashes or lesions identified. ASSESSMENT AND PLAN: 1. Alcoholic pancreatitis and alcoholic hepatitis. The patient with markedly elevated lipase on admission, mildly elevated bilirubin, AST, ALT, and alkaline phosphatase. Lipase trending down rapidly and abdominal symptoms have essentially resolved at this point., and is tolerating diet. Still some fevers as below. 2. Fever like leukocytosis, likely pneumonia. Initially favored her pancreatitis because of the fevers, but they continued after pancreatitis was essentially resolved. X-ray with possible atelectasis, but what could be mild right lower lobe pneumonia. On Zosyn and did appear to be improving on that trend. The patient today lost intravenous access and is stating that she will leave in the morning whether she is discharged or has to leave AMA to attend her father's . I discussed with Infectious Disease and they have transitioned her to Augmentin and ciprofloxacin. If the patient remains afebrile overnight and no other acute issues present themselves then hopefully can be discharged on that in the morning rather than having to leave AMA. 3. Anemia. No signs or symptoms of bleeding. Iron studies most consistent with anemia of chronic disease. Did require a transfusion for a hemoglobin down to 6.2, but somewhat improved since then. Monitor. 4. Acute kidney injury. Only one previous lab, but that appear to show a normal creatinine. Creatinine of 3.3 on admission, and trended down to 1.5-1.6, which is what it has been for the last 3 to 4 days. This may be her new baseline. 5. Hypernatremia, resolved. Monitor. 6. Fatty liver versus early cirrhosis. Given anemia and borderline low platelet count suspect she has at least early cirrhosis, in addition to her fairly heavy alcohol use for many years.
[2019-04-05] MEDS: AUGMENTIN PO SCH (21:11)
[2019-04-05] MEDS: CIPRO PO SCH (21:11)
[2019-04-06 07:41] LABS: ALB/GLOB RATIO 0.5; CALCIUM 7.7 mg/dL (8.8-10.2); CREATININE 1.3 mg/dL (0.5-0.9); POTASSIUM 3.8 mmol/L (3.5-5.1); TOTAL BILIRUBIN 0.93 mg/dL (0.20-1.00); TOTAL PROTEIN 5.7 g/dL (6.3-8.3)
[2019-04-06 07:45] VITALS: BP 121/76
[2019-04-06 07:55] LABS: BASO# 0.03 X1000 (0.0-0.2); BASO% 0.3 % (0.0-0.8); HEMOGLOBIN 7.4 g/dL (12.0-16.0); IMM GRAN# 0.05 X1000 (0.0-0.04); IMM GRAN% 0.5 % (0.0-0.5); LYMPH# 1.88 X1000 (1.2-3.4); LYMPH% 17.1 % (20.5-51.1); MCH 32.9 PG (27-31); MCHC 32.2 g/dL (33-37); MCV 102.2 FL (81-99); MONO# 0.82 X1000 (0.11-0.59); MONO% 7.4 % (1.7-9.3); MPV 9.9 FL (7.4-10.4); NEUT# 8.23 X1000 (1.4-6.5); NEUT% 74.7 % (42.2-75.2); PLT 125 X1000 (130-400); RBC 2.25 XMIL (4.2-5.4); RDW 20.9 % (11.5-14.5); WBC 11.01 X1000 (4.8-10.8)
[2019-04-06] MEDS: AUGMENTIN PO SCH (09:00)
[2019-04-06] MEDS: CIPRO PO SCH (09:00)
--- NOTE | 2019-04-06 15:28 | DISCHARGE SUMMARY ---
ADMISSION DATE: 03/28/2019 DISCHARGE DATE: 04/06/2019 PRIMARY CARE PHYSICIAN: Listed as none. ADMISSION DIAGNOSES: 1. Pancreatitis with elevated amylase. 2. Leukocytosis. 3. Chronic tobacco abuse. 4. Chronic drug use of marijuana. 5. Chronic alcohol use and abuse. 6. Frequent falls, most likely secondary to alcoholism. 7. Diarrhea with negative CT. DISCHARGE DIAGNOSES: 1. Alcoholic pancreatitis and alcoholic hepatitis. 2. Fever like leukocytosis. 3. Anemia of chronic disease. 4. Acute kidney injury, improved. 5. Hyponatremia, resolved. 6. Fatty liver versus early cirrhosis. CONSULTATIONS: With GI, Infectious Disease, Nephrology. SUMMARY OF FINDINGS: This is a 48-year-old female on arrival but turned 49 on 04/04/2019, presented to the emergency department with complaints of generalized weakness and dizziness stating that she had fallen 3 times, was very sleepy and weak. She did recently fall down some steps 3 weeks ago and had a cranial fracture and was most likely related to her alcohol use. She has been having slurred speech and stumbling, not eating well, had some increased diarrhea. She stated that she had been drinking more lately and had been sleeping more. She was admitted. Her amylase on arrival was 345, lipase 575. We did an abdomen and pelvic CT that showed fatty changes in the liver and a small dermoid cyst on the right ovary. We consulted GI, who agreed with following and trending her amylase and lipase, continuing fluid resuscitation. She was given ETOH cessation and verbalized understanding. We did a renal ultrasound on 04/02/2019 that was negative. Infectious Disease was following and followed throughout her hospitalization along with Nephrology. She yesterday had an amylase of 231, a lipase of 280. She is tolerating a GI soft diet. It is noted that her father's is today and she needed to be at the . It was felt that she could safely be discharged. DISCHARGE MEDICATIONS: Will include Augmentin 875 mg p.o. b.i.d. #19 with no refills and Cipro 500 mg p.o. b.i.d. #19 with no refills. She is to follow up with the Infectious Disease doctor if she is not readmitted to the hospital prior to calling for an appointment on Monday and make the appointment for 10 days out. She has been instructed to stop alcohol consumption. She needs to seek outpatient treatment counseling as necessary to complete her journey. All discharge instructions have been reviewed with the patient and she verbalizes understanding. TIME SPENT: This is a 35 minute discharge for Shanice Dowling. Dictated by KYLE Tinoco for Yoel Montoya MD cc: KYLE Tinoco agree with the above. the following is my own face to face assessment. abdomen now soft, nontender. minimal LLL crackles on lung exam. satting well on room air. discharging home on PO abx as per infectious disease. to follow up with pcp and ID. discussed the importance of alcohol cessation as well. ABHIJEET
== END 2019-04-06 09:53 | disposition home or self-care (01) | DRG 438 ==
LOC: P.ED 16:33 → SUATTDRO 21:50 → P.MEDSURG 21:50 → 3N 04-01 13:49
PROVIDERS: ATTEND Internal Medicine